=== PATIENT | female | born 1955 | race Caucasian/White ===

== ENCOUNTER 2019-09-11 22:04 | Outpatient (REF) | payer MEDICARE, SELFPAY ==
[2019-09-11 22:51] LABS: FREE T4 0.95 ng/dL (0.76-1.46); TSH 1.44 uIU/mL (0.36-3.74)
== END 2019-09-11 22:24 ==
LOC: NCHCN 22:04
PROVIDERS: PCP Internal Medicine; Visit Provider Internal Medicine
DX: E03.9 Hypothyroidism, unspecified (principal)
CPT/HCPCS: 84439; 84443

== ENCOUNTER 2021-01-18 09:57 | Outpatient (REF) | payer MEDICARE, SELFPAY ==
[2021-01-18 12:27] LABS: TSH 1.42 uIU/mL (0.36-3.74)
== END 2021-01-18 09:58 | disposition home or self-care (01) ==
LOC: NCHCN 09:57
PROVIDERS: PCP Internal Medicine; Visit Provider Internal Medicine
DX: E03.9 Hypothyroidism, unspecified (principal)
CPT/HCPCS: 84439; 84443

== ENCOUNTER 2021-02-21 11:17 | Outpatient (CLI) | payer MEDICARE, OTHER, SELFPAY ==
--- NOTE | 2021-02-21 09:15 | DI.RAD_ITS ---
EXAM: XR KNEE LT 3V AP,LAT,RUBI CLINICAL HISTORY: BILATERAL KNEE PAIN TECHNIQUE: COMPARISON: No exams were available for comparison FINDINGS: Three views were obtained. There is severe loss of the cartilaginous joint space of the medial tibio femoral joint. There is probably significant narrowing of the cartilaginous joint space of the alaniz lofemoral joint as well. There is sub chondral sclerosis of the a Pan bones at the medial tibiofem oral joint. There are very prominent marginal osteophytes at all 3 joints of the knee probable loose joint bodies noted posteriorly. IMPRESSION: Severe DJD most prominent involving medial tibiofemoral joint. RADIATION DOSE DELIVERED: Total DLP
--- NOTE | 2021-02-21 09:15 | DI.RAD_ITS ---
EXAM: XR KNEE RT 4V AP,LAT,RUBI,PAT CLINICAL HISTORY: BILATERAL KNEE PAIN TECHNIQUE: COMPARISON: CR XR KNEE LT 3V AP,LAT,RUBI from 02/21/2021 FINDINGS: Three views were obtained. There is severe loss of the cartilaginous joint space of the medial tibio femoral joint and probable marked narrowing of the cartilaginous joint space of the patellofemoral yamileth int as well. There is medial femoral subluxation on the tibia and mild varus angulation of the knee. There are very prominent hypertrophic marginal osteophytes involving all 3 joints of the knee. IMPRESSION: Severe degenerative changes of the knee, most marked involving medial tibiofemoral joint. RADIATION DOSE DELIVERED: Total DLP
== END 2021-02-21 11:18 | disposition home or self-care (01) ==
LOC: DIORS 11:17
PROVIDERS: PCP Internal Medicine; Referring Provider Internal Medicine; Visit Provider Student in an Organized Health Care Education/Training Program
DX: M25.561 Pain in right knee; M25.562 Pain in left knee; M17.0 Bilateral primary osteoarthritis of knee
CPT/HCPCS: 73562; 99203; 73564

== ENCOUNTER 2021-03-21 13:16 | Outpatient (CLI) | payer MEDICARE, OTHER, SELFPAY ==
--- NOTE | 2021-03-21 12:45 | DI.RAD_ITS ---
Exam(s) XR STANDING ALIGNMENT EXAM: XR STANDING ALIGNMENT CLINICAL HISTORY: preop planning. TECHNIQUE: 2D digital imaging was performed. COMPARISON: CR XR KNEE RT 4V AP,LAT,RUBI,PAT from 02/21/2021 CR XR KNEE LT 3V AP,LAT,RUBI from 02/21/2021 CR XR KNEE LT 3V AP,LAT,RUBI from 02/21/2021 FINDINGS: Advanced degenerative changes in both knees with [id number] apposition the medial compartments of b oth knees and marginal osteophytes. There is advanced narrowing of the left hip joint space. Also l eft femoral head osteophytes. Right hip appears unremarkable. Ankles appear unremarkable. IMPRESSION: Advanced degenerative changes both knees. Also left hip. DATA REPOSITORY: RADIATION DOSE DELIVERED:
== END 2021-03-21 13:17 | disposition home or self-care (01) ==
LOC: DIORS 13:17
PROVIDERS: PCP Internal Medicine; Referring Provider Internal Medicine; Visit Provider Physician Assistant
DX: Z01.818 Encounter for other preprocedural examination (principal); M17.11 Unilateral primary osteoarthritis, right knee; M17.12 Unilateral primary osteoarthritis, left knee; M16.12 Unilateral primary osteoarthritis, left hip
CPT/HCPCS: 77073

== ENCOUNTER 2021-03-28 02:12 | Outpatient (CLI) | payer MEDICARE, OTHER, SELFPAY ==
[2021-03-28 09:35] LABS: HCT 41.8 % (36.0-46.0); HGB 13.9 g/dL (11.2-15.7); MCHC 33.3 % (32.0-36.0); MCV 93.1 fL (80-95); Platelet Count 209 10^3/uL (130-400); RBC 4.49 10^6/uL (3.93-5.22); RDW 12.6 % (11.7-14.6); RDW-SD 43.4 fL; WBC 6.72 10^3/uL (4.4-10.8)
[2021-03-28 10:19] LABS: Anion Gap 10.6 mmol/L (3-11); BUN 19 mg/dL (7-18); CO2 27.4 mmol/L (21.0-32.0); Calcium 8.9 mg/dL (8.5-10.1); Chloride 106 mmol/L (98-107); Glucose 85 mg/dL (74-106); Potassium 4.1 mmol/L (3.5-5.1); Sodium 144 mmol/L (136-145)
[2021-03-28 11:42] LABS: Source Nasal/Nares
[2021-03-28 14:48] LABS: COVID-19 PCR Negative (Negative)
== END 2021-03-28 02:13 | disposition home or self-care (01) ==
LOC: LBO 02:12
PROVIDERS: PCP Internal Medicine; Visit Provider Student in an Organized Health Care Education/Training Program
DX: M25.561 Pain in right knee (principal); M25.562 Pain in left knee; M17.0 Bilateral primary osteoarthritis of knee; Z20.822 Contact with and (suspected) exposure to COVID-19; Z01.818 Encounter for other preprocedural examination; Z01.812 Encounter for preprocedural laboratory examination
CPT/HCPCS: 36415; 80048; 85027; 86850; 86900; 86901; 87635

== ENCOUNTER 2021-03-29 07:39 | Inpatient (IN) | payer MEDICARE, OTHER, SELFPAY ==
[2021-03-29] VITALS (9 sets, daily range): BP systolic 123–148; BP diastolic 65–84; PULSE 47–70; RESP 14–21; TEMP 36–36.4; O2SAT 95–97; BMI 33.5
--- NOTE | 2021-03-29 07:43 | DSE_ITS ---
Documented by User: Areli Hobson 03/29/21 07:50 DS: Diagnosis Discharge Diagnosis (1) Osteoarthritis of right knee: Status: Acute (2) Osteoarthritis of left knee: Status: Acute Discharge Plan Disposition Patient Disposition: HOME Condition: Good Discharge Details Reason For Visit: BILATERAL KNEE DJD Admit Date/Time: 03/29/21 07:39 Admit Provider: Noe Vallejo Attending Provider: Noe Vallejo Primary Care Provider: José Miguel Mccrary Hospital Course Hospital Course: Patient was admitted to the medical/surgical floor following the procedure. The surgery was tolerated well without any notable medical, surgical, or anesthetic complications. Mobilization began post-operatively. They were voiding s pontaneously. Vitals were stable after fluid bolus. She did have some hypotension which resolved with time and IVF. Physical therapy worked with the patient and was cleared for discharge home. No acute medical issues. Pain was controlled on oral regimen. Home Meds and New Rx's Prescriptions: New celecoxib [Celebrex] 200 mg capsule 200 mg PO BID Qty: 30 RF: 0 aspirin 81 mg tablet,delayed release (DR/EC) 81 mg PO BID 30 Days Qty: 60 RF: 0 acetaminophen 500 mg tablet 500 mg PO Q6H PRN (Reason: pain) Qty: 60 RF: 2 pantoprazole 40 mg tablet,delayed release (DR/EC) 40 mg PO DAILY 30 Days Qty: 30 RF: 0 docusate sodium [Colace] 100 mg capsule 100 mg PO BID Qty: 30 RF: 0 gabapentin 300 mg capsule 300 mg PO QHS Qty: 14 RF: 0 oxycodone 5 mg tablet 5 mg PO Q4H PRN (Reason: severe post-operative pain) Qty: 18 RF: 0 Continued levothyroxine [Synthroid] 50 mcg tablet 75 mcg PO DAILY RF: 0 ascorbic acid (vitamin C) 1,000 MG tablet 1,000 mg PO DAILY RF: 0 calcium carbonate-vitamin D3 1 EACH tablet 1 tab PO DAILY RF: 0 ferrous sulfate 325 mg (65 mg iron) tablet 325 mg PO DAILY RF: 0 No Action omeprazole 20 mg capsule,delayed release(DR/EC) 20 mg PO Q OTHER DAY RF: 0 Discharge Instructions Additional Instructions: Total Knee Discharge Instructions Activity: The most important activity is to walk. You should try to take short walks a few times a day. It is important that when resting you work on keeping the knee straight. Avoid putting a pillow behind the knee as this will encourage flexion. Work on range of motion exercises as provided by Physical Therapy. - Start outpatient physical therapy within 2 weeks. - You should wear the DEVIKA hose on both legs for 2 weeks. You may remove these at night. You may also use any compression sock in place of the DEVIKA hose. Dressing: You may remove the Liam wrap on your leg 2 days after your surgery and put on the DEVIKA stocking given to you from the hospital. Keep the surgical dressing (underneath the LIAM wrap) in place for at least one week. After the first week it may be removed and replaced with light gauze and tape or nothing. The wound and dressing may get wet after 3 days but avoid soaking the dressing or otherwise it will need to be changed. Many people prefer covering the dressing with cling wrap (saran wrap) to minimize it from getting soaked. If it gets wet, just pat dry. If it starts to peel off then it will need to be changed. Medications: - You should take Tylenol and anti-inflammatory Celebrex as your primary pain c ontrol medications. If the Celebrex is too expensive or not covered, please call the office for another alternative (Advil/Ibuprofen or Naproxen/Aleve) - You have been prescribed a stronger pain medication Oxycodone for breakthrough pain, take as needed as prescribed. - You have also been prescribed a stomach acid reduction agent Pantoprozole to help reduce stomach acid and reflux. - You have been prescribed Gabapentin to take at night for restlessness and nerve pain. - You will be taking Aspirin 81mg twice a day for DVT prevention unless instructed otherwise. - If you have constipation you should take Colace (which has been prescribed) or Miralax (which you may purchase [id number]). It takes most people 3-4 days to have a bowel movement. Follow-up: 2 weeks If you have any acute concerns or questions, please do not hesitate to contact the office at [phone]. You may contact Dr. Vallejo with any questions after hours through the hospital at [phone] or on his cell phone at [phone]. Referrals: Noe Vallejo MD [ [facility] STAFF PHYSICIAN] - Activity:: Activity as Tolerated Equipment/Supplies:: Walker Diet:: As Tolerated Discharge Orders Discharge Orders: Discharge Order (Routine); Ordered 03/30/21 Ordered By: Noe Vallejo FORMERLY [facility], [facility]–1983 Medical History Erosive esophagitis GERD (gastroesophageal reflux disease) Hypothyroid Migraine headache Obesity Surgical History Colonoscopy - [facility] 2009 Endoscopy 2009 Thyroid partial thyroidectomy Social History Smoking/Tobacco Use Status: Never Smoking risk assessment performed?: Yes Alcohol Intake: never Drug use: Never Substance use type: does not use current occupation: retired - used to work at a bank; 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 The surgery was tolerated well without any notable medical, surgical, or anesthetic complications. Mobilization began post-operatively. They were voiding spontaneously. Vitals were stable after fluid bolus. She did have some h ypotension which resolved with time and IVF. Physical therapy worked with the patient and was cleared for discharge home. No acute medical issues. Pain was controlled on oral regimen. Home Meds and New Rx's Prescriptions: New celecoxib [Celebrex] 200 mg capsule 200 mg PO BID Qty: 30 RF: 0 aspirin 81 mg tablet,delayed release (DR/EC) 81 mg PO BID 30 Days Qty: 60 RF: 0 acetaminophen 500 mg tablet 500 mg PO Q6H PRN (Reason: pain) Qty: 60 RF: 2 pantoprazole 40 mg tablet,delayed release (DR/EC) 40 mg PO DAILY 30 Days Qty: 30 RF: 0 docusate sodium [Colace] 100 mg capsule 100 mg PO BID Qty: 30 RF: 0 gabapentin 300 mg capsule 300 mg PO QHS Qty: 14 RF: 0 oxycodone 5 mg tablet 5 mg PO Q4H PRN (Reason: severe post-operative pain) Qty: 18 RF: 0 Continued levothyroxine [Synthroid] 50 mcg tablet 75 mcg PO DAILY RF: 0 ascorbic acid (vitamin C) 1,000 MG tablet 1,000 mg PO DAILY RF: 0 calcium carbonate-vitamin D3 1 EACH tablet 1 tab PO DAILY RF: 0 ferrous sulfate 325 mg (65 mg iron) tablet 325 mg PO DAILY RF: 0 No Action omeprazole 20 mg capsule,delayed release(DR/EC) 20 mg PO Q OTHER DAY RF: 0 Discharge Instructions Additional Instructions: Total Knee Discharge Instructions Activity: The most important activity is to walk. You should try to take short walks a few times a day. It is important that when resting you work on keeping the knee straight. Avoid putting a pillow behind the knee as this will encourage flexion. Work on range of motion exercises as provided by Physical Therapy. - Start outpatient physical therapy within 2 weeks. - You should wear the DEVIKA hose on both legs for 2 weeks. You may remove these at night. You may also use any compression sock in place of the DEVIKA hose. Dressing: You may remove the Liam wrap on your leg 2 days after your surgery and put on the DEVIKA stocking given to you from the hospital. Keep the surgical dressing (underneath the LIAM wrap) in place for at least one week. After the first week it may be removed and replaced with light gauze and tape or nothing. The wound and dressing may get wet after 3 days but avoid soaking the dressing or otherwise it will need to be changed. Many people prefer covering the dressing with cling wrap (saran wrap) to minimize it from getting soaked. If it gets wet, just pat dry. If it starts to peel off then it will need to be changed. Medications: - You should take Tylenol and anti-inflammatory Celebrex as your primary pain control medications. If the Celebrex is too expensive or not covered, please call the office for another alternative (Advil/Ibuprofen or Naproxen/Aleve) - You have been prescribed a stronger pain medication Oxycodone for breakthrough pain, take as needed as prescribed. - You have also been prescribed a stomach acid reduction agent Pantoprozole to help reduce stomach acid and reflux. - You have been prescribed Gabapentin to take at night for restlessness and nerve pain. - You will be taking Aspirin 81mg twice a day for DVT prevention unless instructed otherwise. - If you have constipation you should take Colace (which has been prescribed) or Miralax (which you may purchase [id number]). It takes most people 3-4 days to have a bowel movement. Follow-up: 2 weeks If you have any acute concerns or questions, please do not hesitate to contact the office at [phone]. You may contact Dr. Vallejo with any questions after hours through the hospital at [phone] or on his cell phone at [phone]. Referrals: Noe Vallejo MD [ [facility] STAFF PHYSICIAN] - Activity:: Activity as Tolerated Equipment/Supplies:: Walker Diet:: As Tolerated Discharge Orders Discharge Orders: Discharge Order (Routine); Ordered 03/30/21 Ordered By: Noe Vallejo DS: Summary Time Spent with Patient providing and/or coordinating discharge services: Greater than 30 minutes Status at Discharge Functional status at discharge: independent ambulation Overall status at discharge: patient is progressing back to baseline Mental Status: mental status grossly normal Speech and Movement: speech and movement normal Mood: congruent mood Affect: normal affect Exam Psych Mental Status: mental status grossly normal Speech and Movement: speech and movement normal Mood: congruent mood Affect: normal affect FORMERLY [facility], [facility] Medical History Erosive esophagitis GERD (gastroesophageal reflux disease) Hypothyroid Migraine headache Obesity Surgical History Colonoscopy - 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
[2021-03-29] MEDS: Gabapentin 300 MG CAP PO ×2 (11:07→21:18)
[2021-03-29] MEDS: Celecoxib 200 MG CAP 400 MG PO (11:07)
[2021-03-29] MEDS: Acetaminophen 500 MG TAB 1000 MG PO ×2 (11:07→21:18)
--- NOTE | 2021-03-29 11:09 | ANES.PREOP_ITS ---
General Info Date of Service Date Performed: 03/29/21 Height: 5 ft 7 in Weight: 97.1 kg Body Mass Index (BMI): 33.5 Surgical Procedure: Operation Date: 03/29/21 13:20 Proposed Procedures Side Surgeon p Knee Total Arthroplasty Bilateral Bilateral Noe Vallejo MD Meds Allergies and Home Medications Allergies Allergy/AdvReac Type Severity Reaction Status Date / Time No Known Allergies Allergy Unverified 03/29/21 10:58 Home Medication Medication Instructions Recorded ascorbic acid (vitamin C) 1,000 mg PO DAILY 08/06/14 calcium carbonate-vitamin D3 1 tab PO DAILY 08/06/14 Synthroid 50 mcg tablet 75 mcg PO DAILY tab-cap NS 02/21/21 ferrous sulfate 325 mg (65 mg 325 mg PO DAILY tab 03/21/21 iron) tablet acetaminophen 500 mg PO Q6H PRN #60 tab 03/29/21 aspirin 81 mg PO BID 30 Days #60 tab 03/29/21 celecoxib [Celebrex] 200 mg PO BID #30 cap 03/29/21 docusate sodium [Colace] 100 mg PO BID #30 cap 03/29/21 gabapentin 300 mg PO QHS #14 cap 03/29/21 ibuprofen 600 mg PO TID PRN #60 tab 03/29/21 omeprazole 20 mg PO Q OTHER DAY 03/29/21 oxycodone 5 mg PO Q4H PRN #18 tab 03/29/21 pantoprazole 40 mg PO DAILY 30 Days #30 tab 03/29/21 Current Visit Medications: Current Medications Generic Name Dose Route Start Last Admin Trade Name Freq PRN Reason Stop Dose Admin Acetaminophen 1,000 mg 03/29/21 06:00 03/29/21 11:07 Acetaminophen 500 Mg Tab PO 03/29/21 23:59 1,000 mg PREOP BETTY Administration Acetaminophen 1,000 mg 03/29/21 14:00 Acetaminophen 500 Mg Tab PO TID BETTY Aspirin 81 mg 03/29/21 20:00 Aspirin E.C. 81 Mg Tabec PO BID BETTY Celecoxib 400 mg 03/29/21 06:00 03/29/21 11:07 Celecoxib 200 Mg Cap PO 03/29/21 23:59 400 mg PREOP BETTY Administration Celecoxib 200 mg 03/29/21 20:00 Celecoxib 200 Mg Cap PO BID BETTY Docusate Sodium 100 mg 03/29/21 07:39 Docusate Sodium 100 Mg Cap PO BID PRN PRN Constipation Ephedrine Sulfate 0 mg 03/29/21 10:06 Ephedrine 50 Mg/Ml Vial IVP DIRECTED PRN Fentanyl 0 mcg 03/29/21 10:06 Fentanyl 100 Mcg/2 Ml Vial IVP DIRECTED PRN Gabapentin 300 mg 03/29/21 06:00 03/29/21 11:07 Gabapentin 300 Mg Cap PO 03/29/21 23:59 300 mg PREOP BETTY Administration Gabapentin 300 mg 03/29/21 22:00 Gabapentin 300 Mg Cap PO HS BETTY Hydromorphone HCl 0.5 mg 03/29/21 07:39 Hydromorphone 2 Mg/Ml Vial IVP Q2H PRN PRN Hydromorphone HCl 0 mg 03/29/21 10:06 Hydromorphone 2 Mg/Ml Vial IVP DIRECTED PRN Tranexamic Acid 1,000 mg/ 60 mls @ 360 mls/hr 03/29/21 06:00 Sodium Chloride IVPB 03/29/21 23:59 PREOP BETTY Tranexamic Acid 1,000 mg/ 60 mls @ 360 mls/hr 03/29/21 06:00 Sodium Chloride IVPB 03/29/21 23:59 DIRECTED BETTY Ringer's Solution 1,000 mls @ 80 mls/hr 03/29/21 06:00 IV 04/27/21 23:59 INFUSION BETTY Cefazolin Sodium/Dextrose 2 gm in 50 mls @ 100 mls/hr 03/29/21 06:00 Ancef Duplex IVPB 03/29/21 23:59 PREOP BETTY Cefazolin Sodium/Dextrose 1 gm in 50 mls @ 100 mls/hr 03/29/21 10:00 Ancef Duplex IVPB 03/30/21 02:29 Q8H BETTY Promethazine HCl 6.25 mg/ 50.25 mls @ 200 mls/hr 03/29/21 10:06 Sodium Chloride IVPB DIRECTED PRN Nausea IV Miscellaneous Supplies 1 each 03/29/21 06:00 Iv Access IV 04/27/21 23:59 DIRECTED BETTY Naloxone HCl 0 mg 03/29/21 10:06 Naloxone 0.4 Mg/Ml Vial IVP PRN PRN Oxycodone HCl 0 mg 03/29/21 07:39 Oxycodone 5 Mg Tab PO Q3H PRN PRN Pain Pantoprazole Sodium 40 mg 03/30/21 08:00 Pantoprazole 40 Mg Tabcr PO DAILY@0730 BETTY Polyethylene Glycol 17 gm 03/29/21 07:39 Polyethylene Glycol 3350 17 Gm Packet PO BID PRN PRN Constipation Sodium Chloride 0 ml 03/29/21 06:00 Normal Saline Flush 10 Ml Syr IV 04/27/21 23:59 PRN PRN Sodium Chloride 0 ml 03/29/21 06:00 Normal Saline 10 Ml Vial IJ 04/27/21 23:59 DIRECTED PRN Sterile Water 0 ml 03/29/21 06:00 Water,Injection,Sterile 10 Ml Vial IJ 04/27/21 23:59 DIRECTED PRN PFSH Active Problems Active Problems: Problem Status Onset Code Osteoarthritis of right knee M17.11 Osteoarthritis of left knee M17.12 Medical History Medical History Erosive esophagitis GERD (gastroesophageal reflux disease) Hypothyroid Migraine headache Obesity Surgical History Surgical History Colonoscopy - [facility] 2009 Endoscopy 2009 Thyroid partial thyroidectomy Tobacco Smoking/Tobacco Use Status: Never Alcohol Alcohol Intake: never Substance Use Substance use: Never Substance use type: does not use Vital Signs and Lab Results Vital Signs Most Recent Vital Signs in EMR: Most Recent Vital Signs Temp Pulse Resp BP Pulse Ox 36 C L 70 20 148/75 H 97 03/29/21 10:53 03/29/21 10:53 03/29/21 10:53 03/29/21 10:53 03/29/21 10:53 Lab Results Blood Type / Crossmatch: Patient ABO/Rh O Positive 03/28/21 09:05 03/28/21 Antibody Screen Negative 03/28/21 09:05 03/28/21 Complete Blood Count: White Blood Count 6.72 10^3/uL (4.4-10.8) 03/28/21 09:05 03/28/21 Red Blood Count 4.49 10^6/uL (3.93-5.22) 03/28/21 09:05 03/28/21 Hemoglobin 13.9 g/dL (11.2-15.7) 03/28/21 09:05 03/28/21 Hematocrit 41.8 % (36.0-46.0) 03/28/21 09:05 03/28/21 Platelet Count 209 10^3/uL (130-400) 03/28/21 09:05 03/28/21 Complete Metabolic Panel: Sodium Level 144 mmol/L (136-145) 03/28/21 09:05 03/28/21 Potassium Level 4.1 mmol/L (3.5-5.1) 03/28/21 09:05 03/28/21 Chloride Level 106 mmol/L (98-107) 03/28/21 09:05 03/28/21 Carbon Dioxide Level 27.4 mmol/L (21.0-32.0) 03/28/21 09:05 03/28/21 Blood Urea Nitrogen 19 mg/dL (7-18) H 03/28/21 09:05 03/28/21 Creatinine 1.0 mg/dL (0.55-1.02) 03/28/21 09:05 03/28/21 Calcium Level 8.9 mg/dL (8.5-10.1) 03/28/21 09:05 03/28/21 Glucose Level 85 mg/dL (74-106) 03/28/21 09:05 03/28/21 Liver Function Panel: No Data to Display Coagulation Panel: No Data to Display Cardiac Panel: No Data to Display Arterial Blood Gas: No Data to Display Venous Blood Gas: No Data to Display Pancreas Panel: No Data to Display Thyroid Panel: 2 No Data to Display Infectious Disease: Coronavirus (COVID-19)(PCR) Negative (Negative) 03/28/21 09:16 03/28/21 Coronavirus 2019 Source Nasal/nares 03/28/21 09:16 03/28/21 Blood Cultures: No Data to Display Toxicology Panel: No Data to Display Anesthesia Assessment and Plan Anesthesia History Personal History: No History of Anesthesia Complications Family History: No Family History of Anesthesia Complications Exercise Tolerance Exercise Tolerance: Metabolic Equivalents>4 Pertinent Negatives Pertinent Negatives: No Symptoms of GERD (GERD well controlled), No Major Cardiovascular Symptoms or Complaints, No Major Pulmonary Symptoms or Complaints and No History of CVA/TIA Cardiac & Pulmonary Exam Cardiac Exam: Normal S1/S2 Heart Sounds Pulmonary Exam: Clear Bilateral Breath Sounds Airway Exam Known Difficult Airway: No Mallampati Class: 3 Mouth Opening: Narrow (< 3cm) Thyromental Distance: Less than 3 cm Neck Range of Motion: Full ROM Neck Circumference: Normal Teeth Condition: Loose or Chipped ASA Classification ASA Score: ASA 2 Emergency Case?: No NPO Status NPO Status: NPO Clears >2 hours, Solids >8 hours Anesthesia Plan Resuscitation Status: Full Code Anesthesia Technique: Spinal Anesthesia Airway Planned: Natural Airway Monitors Used: Standard Monitors
[2021-03-29] MEDS: Lactated Ringers 1,000 ML 80 ML IV ×2 (11:15→17:42)
[2021-03-29] MEDS: ceFAZolin 2 GM/50 ML BAG IVPB (12:18)
--- NOTE | 2021-03-29 12:34 | W.ANESNERVE ---
Nerve Block Single Injection Procedure Date and Time Date Performed: 03/29/21 Procedure Start: 11:42 Location Where Procedure Performed Procedure Location: PACU Reason Performed: Postoperative Analgesia Requesting Provider: Noe Vallejo Timeout Performed Timeout Performed: Yes Monitoring Used ECG, Blood Pressure, SpO2 and See EMR for corresponding vital signs Sterility Sterility: Hand Hygiene, Surgical Cap, Surgical Mask, Sterile Gloves and Chlorhexidine Sedation Given During Procedure Sedation Given (Indicate Dose Given): Versed IV Dose:: 2 mg Patient Mental Status Patient Mental Status: Sedate with meaningful communication Nerve Block 1st Nerve Block: Laterality: Bilateral Block Type: Adductor Canal Needle / Catheter Used: 120mm SonoPlex II Local Anesthetic Bolus (Indicate Dose Given): None Additives (Indicate Dose Given): None Ultrasound: Sterile probe cover and gel used Ultrasound Image Saved?: Yes Nerve Stimulator: Not Used Paresthesia: None Procedure Tolerated: No Complications and Patient tolerated well Procedure Outcome: Successful Performed By: Carmen Gerard Supervised By: Ivana Sandhu
[2021-03-29] MEDS: Normal Saline 20 ML VIAL (13:14)
[2021-03-29] MEDS: Ketorolac 30 MG/ML VIAL (13:14)
[2021-03-29] MEDS: Bupivacaine 0.25% Pres-Free 30 ML VIAL (13:14)
--- NOTE | 2021-03-29 14:21 | IN_ITS ---
PT Notes Visit Reasons: BILATERAL KNEE DJD
--- NOTE | 2021-03-29 14:21 | PT.INIE ---
PT Notes Visit Reasons: BILATERAL KNEE DJD
--- NOTE | 2021-03-29 15:41 | ROE_ITS ---
Date of service: 03/29/21 Time of Service: 15:43 Operative Note Operative Note DATE OF PROCEDURE: 03/29/21 PRE-OP DIAGNOSIS: Bilateral Knee Osteoarthritis POST-OP DIAGNOSIS: same PROCEDURE: Bilateral Total Knee Replacement SURGEON: Noe Vallejo RN CLINICAL DOCUMENTATION SPECIALIST: Areli Hobson ANESTHESIA TYPE: Spinal Refer to Anesthesia Record ESTIMATED BLOOD LOSS: 400 PATHOLOGY: none sent TOURNIQUET TIME: 0 COMPLICATIONS: None Patient was transported to: PACU Patient's condition: stable Implants: RIGHT: 1. Depuy Attune Cementless Cruciate Retaining Femoral Component, Size 7 2. Depuy Attune Cementless Rotating Platform Tibial Component, Size 6 3. Depuy Attune 7x10 CR/RP Poly 4. Depuy Attune Patellar Component, Size 35 LEFT: 1. Depuy Attune Cemented Cruciate Retaining Femoral Component, Size 6 2. Depuy Attune Cementless Rotating Platform Tibial Component, Size 5 3. Depuy Attune 6x7 CR/RP Poly 4. Depuy Attune Patellar Component, Size 35 Indications: I have seen Vidya in clinic for symptoms of knee arthritis, confirmed with radiographic findings. She has exhausted nonoperative methods and was having significant limitations in daily function and desired better function and less pain. I discussed the technical details of a knee replacement. I explained the risks of the procedure to include, but not limited to, bleeding, infection, pain, stiffness, fracture, damage to nerves and vessels, damage to muscles and tendons, loosening, need for repeat procedure, blood clot and cardiopulmonary demise. Despite these risks, Vidya elected to proceed. Findings: There was significant signs of arthritis throughout the knee involving all three compartments of both knees. There was notable deformity of the medial femur and tibia and large osteophytes were present throughout, especially posteriorly. Procedure Description: Vidya was greeted in the preoperative holding area where the correct side was identified and marked. The consent was reviewed with the patient and signed. The history and physical was updated. All questions were answered. Preoperative medications were administered: Acetaminophen 1000mg, Celebrex 400mg, and Gabapentin 300mg. An adductor canal block was then administered by the anesthesia team in the PACU to both knees. Vidya was taken back to the operating room. A spinal anesthestic was then administered. The patient was placed into the supine position on the operating room table. A nonsterile tourniquet was placed high onto both legs but not used. Posts were placed for positioning during the procedure. All bony prominences were well padded. Prophylactic antibiotics in the form of Cefazolin were administered. 1g of Tranxemic Acid was given intravenously within 30 minutes of incision. The right and left legs were then prepped with Chloraprep and draped in a standard fashion with impervious stockinette and a bilateral extremity drape. A second prep with Chloraprep was performed prior to application of Iodine impregnated skin protection on the right knee, while the left knee was left covered by the stockinette. A timeout to confirm correct identity, side and site, procedure, allergies, anesthesia, and medical concerns was performed. RIGHT KNEE: With the knee in some flexion, a midline incision was made overlying the knee. Full thickness skin flaps were raised once the extensor mechanism was encountered. These were raised medially and laterally. Any bleeding was controlled with electrocautery. Once the extensor mechanism was fully exposed, a medial parapatellar arthrotomy was performed in a flexed position. All bleeding from the arthrotomy and the geniculate arteries was coagulated. A medial subperiosteal peel was performed with electrocautery to the midcoronal plane. Due to the significant varus deformity the entire medial tibial plateau was exposed. There was a large medial osteophyte which was exposed by elevating the medial tissues subperiosteally. The fat pad was removed while keeping the patellar tendon protected. The anterior distal femur synovium was removed for later visualization. The ACL and PCL were resected and the anterior horn of the lateral meniscus was transected. The knee was then flexed with the patella everted. Large osteophytes from the tibia were removed. Large osteophytes from the femur were removed. There was a loose posteromedial osteophyte from the tibia. Using a step drill, and based on preoperative templating, the femoral canal was entered. This was done with a step drill without any difficulty. The intramedullary distal femoral cut guide was inserted, set to a 5 degree valgus cut and 9mm cut thickness. The distal femoral cut guide was then held in posi tion and pinned. With the soft tissues protected, the distal cut was performed. This was passed over a few times to ensure a planar cut. I then turned attention to the tibia. The extramedullary guide was placed onto the leg. The distal aspect was slid medial to adjust for position of center of ankle and stay in line with shaft of the tibia. Approximately 5 degrees of posterior slope was kept in the proximal cutting guide. The center of the guide was aligned with the PCL. The stylus was used to assess cut thickness. The medial side, most involved side, was set for a 3mm cut. This was then held in position and pinned into place with 2 additional pins and a cross pin for stability. The medial and lateral collateral ligaments were protected and the cut was performed. With this com pleted, it was assessed and noted to be of appropriate dimensions. The guide was removed. A spacer block was inserted and the knee was brought into extension. The 8mm spacer block provided full extension, without hyperextension and with stability of both the medial and lateral collateral ligaments was assessed. The pins from the femur and the tibia were then removed. The distal femur was then sized. The anterior stylus was placed onto the lateral ridge of the anterior femur. This indicated a size 7 femur. The external rotation of the guide was adjusted to 0 degrees to match the epicond ylar axis, perpendicular to [place]?s line. The 4-in-1 cutting guide was the placed. The posterior medial femur cut was evaluated and appeared of good thickness. The spacer block was inserted underneath the cutting guide and stability was confirmed in 90 degrees of flexion. An sabra wing was used to confirm appropriate position of the anterior cut to avoid notching. This cutting guide was ensured to be flush on the cut surface and then pinned into place with headed pins. While protecting the soft tissues, quad tendon, and collateral ligaments, the anterior and posterior cuts were performed with a saw. The central two pins were removed and the posterior and anterior chamfers were cut next. The notch-cutting guide was placed. This was pinned to lateralize the femoral component as much as possible while keeping it flush on the cut surface. This was then pinned into position. A reciprocating saw was used to make the notch cut. A rasp smoothed the cut surfaces. The medial and lateral menisci were removed. I then used a rongeur as well as a curved osteotome to try to remove the many posterior osteophytes. There were many large bony prominences posteriorly. A trial femoral component was then inserted, impacted down to the cut surfaces, and the lug holes were drilled. A provisional trial tibial component was placed and the knee was brought through range of motion. The polyethylene was trialed until there was good flexion and extension with excellent stability to the medial and lateral collaterals. The patella was tracking without thumbs. A size 10mm polyethylene component provided the best range of motion and stability with less than 2mm gapping with medial and lateral stress and full extension without significant hyperextension. The tibial cut surface was fully exposed. The tibia was then sized as a 6. The tibia had been previously marked during trialing to correspond to the center of the tibial component to help with rotation. The trial was aligned to this marilin, approximately rotated to the medial 1/3rd of the tibial tubercle. The trial was pinned into place. The tibia was prepared with a reamer and a keel punch and lug holes. The knee was then brought into extension and the patella was measured as 25mm. Using the patellar clamp and cut guide, this was resected to a flat surface with at least 13mm of thickness remaining. The size 35 patella fit the best. This was oriented and then clamped into position. The lugs were drilled. The trial components were removed. The final components were opened on the back table. The periosteal and capsular tissues, especially posteriorly, around the knee were then systematically injected with a periarticular cocktail consisting of 50cc 0.25% Marcaine, 30mg Ketorolac, 20cc of Exparal and 50cc of injectable saline. The knee was thoroughly irrigated with a pulse lavage and dried. Irrisept was also used to irrigate the tissues. On the back table, with the implants opened, the cement was mixed. One batch of high viscosity cement was prepared with vacuum assistance. After the cement was ready a small amount was placed on the cut surface of the patella and the patellar button was clamped into position and held. While the cement was hardening, the cementless knee components were placed. Starting with the tibial component, the tibia was subluxed anteriorly and the lug holes of the component were lined up. The tibia was then impacted with an impactor and mallet until the tibial component was in contact with the tibia. The final polyethylene component was inserted. Then, the femoral component was inserted. The lug holes were aligned and the component was impacted into position. The knee was irrigated with Irrisept chlorhexadine solution. This was allowed to sit in the knee for 3 minutes. After the cement had finally cured, approximately 15min, the clamp was removed from the patella and the knee was taken through range of motion. The patella was tracking with a no-thumbs technique. The capsule was then reapproximated with a No. 1 Vicryl at multiple locations. The capsule was finally closed with a No. 2 Stratafix, barbed suture. The second dosing of 1g TXA was started. Deep tissues were then reapproximated with 0 Vicryl and 2-0 Vicryl. The skin was closed with a running 3-0 Monocryl in a subcuticular fashion. This was reinforced with skin glue. This knee was covered and I proceeded with the left knee. A second dose of TXA was now administered. LEFT KNEE: With the knee in some flexion, a midline incision was made overlying the knee. Full thickness skin flaps were raised once the extensor mechanism was encountered. These were raised medially and laterally. Any bleeding was controlled with electrocautery. Once the extensor mechanism was fully exposed, a medial parapatellar arthrotomy was performed in a flexed position. All bleeding from the arthrotomy and the geniculate arteries was coagulated. A medial subperiosteal peel was performed with electrocautery to the midcoronal plane. Due to the significant varus deformity the entire medial tibial plateau was exposed. The fat pad was removed while keeping the patellar tendon protected. The anterior distal femur synovium was removed for later visualization. The ACL and PCL were resected and the anterior horn of the lateral meniscus was transected. The knee was then flexed with the patella everted. Large osteophytes from the tibia were removed. Large osteophytes from the femur were removed. Once again there was a large osteophyte from the medial tibia which had capsular tissues embedded to it. Using a step drill, and based on preoperative templating, the femoral canal was entered. This was done with a step drill without any difficulty. The intramedullary distal femoral cut guide was inserted, set to a 5 degree valgus cut and 9mm cut thickness. There was notable deformity of the distal femur, both laterally and medially. The distal femoral cut guide was then held in position and pinned. With the soft tissues protected, the distal cut was performed. This was passed over a few times to ensure a planar cut. I then turned attention to the tibia. The extramedullary guide was placed onto the leg. The distal aspect was slid medial to adjust for position of center of ankle and stay in line with shaft of the tibia. Approximately 5 degrees of posterior slope was kept in the proximal cutting guide. The center of the guide was aligned with the PCL. The stylus was used to assess cut thickness. The medial side, most involved side, was set for a 2mm cut. This was then held in position and pinned into place with 2 additional pins and a cross pin for stability. The medial and lateral collateral ligaments were protected and the cut was performed. With this completed, it was assessed and noted to be of appropriate dimensions. The guide was removed. A spacer block was inserted and the knee was brought into extension. The 6mm spacer block provided full extension, without hyperextension and with stability of both the medial and lateral collateral ligaments was assessed. The pins from the femur and the tibia were then removed. The distal femur was then sized. The anterior stylus was placed onto the lateral ridge of the anterior femur. This indicated a size 6 femur. The external rotation of the guide was adjusted to 0 degrees to match the epicondylar axis, perpendicular to [place]?s line. The 4-in-1 cutting guide was the placed. The posterior medial femur cut was evaluated and appeared of good thickness. The spacer block was inserted underneath the cutting guide and stability was confirmed in 90 degrees of flexion. An sabra wing was used to confirm appropriate position of the anterior cut to avoid notching. This cutting guide was ensured to be flush on the cut surface and then pinned into place with headed pins. While protecting the soft tissues, quad tendon, and collateral ligaments, the anterior and posterior cuts were performed with a saw. The central two pins were removed and the posterior and anterior chamfers were cut next. The notch-cutting guide was placed. This was pinned to lateralize the femoral component as much as possible while keeping it flush on the cut surface. This was then pinned into position. A reciprocating saw was used to make the notch c ut. A rasp smoothed the cut surfaces. The medial and lateral menisci were removed. Once again, there were many posterior osteophytes. Using a rongeur and a curved osteotome, I removed these. They were very large and difficulty to remove and took some time to get them out. Unfortunately, it seemed during this process that some of the bone of the posterior femur was compressed. It was checked and still seemed intact enough to support the implant. Thus, a trial femoral component was then inserted, impacted down to the cut surfaces, and the lug holes were drilled. A provisional trial tibial component was placed and the knee was brought through range of motion. The polyethylene was trialed until there was good flexion and extension with excellent stability to the medial and lateral collaterals. The patella was tracking without thumbs. A size 7mm polyethylene component provided the best range of motion and stability with less than 2mm gapping with medial and lateral stress and full extension without significant hyperextension. The tibial cut surface was fully exposed. The tibia was then sized as a 5. The tibia had been previously marked during trialing to correspond to the center of the tibial component to help with rotation. The trial was aligned to this marilin, approximately rotated to the medial 1/3rd of the tibial tubercle. The trial was pinned into place. The tibia was prepared with a reamer and a keel punch and lug holes. The knee was then brought into extension and the patella was measured as 25mm. Using the patellar clamp and cut guide, this was resected to a flat surface with at least 13mm of thickness remaining. The size 35 patella fit the best. This was oriented and then clamped into position. The lugs were drilled. The trial components were removed. The final components were opened on the back table. The periosteal and capsular tissues, especially posteriorly, around the knee were then systematically injected with a periarticular cocktail consisting of 50cc 0.25% Marcaine, 30mg Ketorolac, 20cc of Exparal and 50cc of injectable saline. The knee was thoroughly irrigated with a pulse lavage and dried. Irrisept was also used to irrigate the tissues. On the back table, with the implants opened, the cement was mixed. One batch of high viscosity cement was prepared with vacuum assistance. After the cement was ready a small amount was placed on the cut surface of the patella and the patellar button was clamped into position and held. While the cement was hardening, the cementless knee components were placed. Starting with the tibial component, the tibia was subluxed anteriorly and the lug holes of the component were lined up. The tibia was then impacted with an impactor and mallet until the tibial component was in contact with the tibia. The final polyethylene component was inserted. Then, the femoral component was inserted. The lug holes were aligned and the component was impacted into position. Unfortunately, the component would not impace all the way with a lack of purchase posteriorly causing the implant to rotate. The poly was removed but the component was not stable. Therefore, I convereted to a cemented femoral component, keeping with the size 6 to keep the flexion gap. On the back table, one batch of high viscosity cement was mixed. The cut surface of the femur was pulse irrigated and dried. Cement was applied to the posterior condyles of the implant and I manually pressurized cement into the femur. The femoral component was then placed and held during the entire cementing process trying to keep the anterior flanges resting against the anterior femur. After the cement had finally cured, approximately 15min, the clamp was removed from the patella and the femur and the knee was taken through range of motion. The patella was tracking with a no-thumbs technique. Excess cement was removed. The trial poly was removed and the real component inserted. The capsule was then reapproximated with a No. 1 Vicryl at multiple locations. The capsule was finally closed with a No. 2 Stratafix, barbed suture. Deep tissues were then reapproximated with 0 Vicryl and 2-0 Vicryl. The skin was closed with a running 3-0 Monocryl in a subcuticular fashion. This was reinforced with skin glue. A Mepilex silver dressing was applied along with a [id number] BERLIN wrap to both knees. A CryoCuff was applied. Vidya was transferred to the hospital bed without difficulty an suffering no apparent complication. She has a good prognosis. Physical therapy will start today and without r estrictions, weight-bearing as tolerated. Aspirin 81mg BID will be used for DVT prophylaxis.
--- NOTE | 2021-03-29 17:17 | NT_ITS ---
Date of service: 03/29/21 Time of Service: 17:17 PT Notes Visit Reasons: BILATERAL KNEE DJD Patient is still in the PACU unit as of 17:17 PM. Consulted with orthopedic surgeon who advised that patient is okay to be seen tomorrow morning. Thank you for the opportunity to participate in the care of this patient. Annie Regalado PT, DPT, [facility] [place], [place]
[2021-03-29] MEDS: ceFAZolin 1 GM/50 ML BAG IVPB (17:43)
[2021-03-29] MEDS: Celecoxib 200 MG CAP PO (21:18)
[2021-03-29] MEDS: Aspirin E.C. 81 MG TABEC PO (21:18)
[2021-03-30] VITALS (14 sets, daily range): BP systolic 73–127; BP diastolic 40–74; PULSE 54–110; RESP 16–19; TEMP 36.1–36.6; O2SAT 87–98
[2021-03-30] MEDS: ceFAZolin 1 GM/50 ML BAG IVPB ×2 (01:28→11:18)
[2021-03-30] MEDS: Lactated Ringers 1,000 ML 80 ML IV (05:26)
--- NOTE | 2021-03-30 07:17 | W.ANESPOSTOP ---
Postoperative Evaluation Date, Time and Location Date Performed: 03/30/21 Time Performed: 07:17 Patient Location: Med/Surg Vital Signs Most Recent Imported Vital Signs: Most Recent Vital Signs Temp Pulse Resp BP Pulse Ox 36.6 C 60 18 100/61 97 03/30/21 03:58 03/30/21 03:58 03/30/21 03:58 03/30/21 03:58 03/30/21 03:58 Pain Score Most Recent Pain Score: Most Recent Pain Score Pain Level 0 03/30/21 03:58 Assessment Mental Status: Awake (Alert & Oriented to Patient Baseline) Airway and Respiratory Function: Patent airway with normal (patient baseline) respiratory exam Cardiovascular Function: Hemodynamically Stable Hydration Status: Adequately Hydrated Nausea & Vomiting: No Nausea or Vomiting Pain: Pt. Denies Any Pain Peripheral Nerve Block: Regional nerve block not resolved at time of post operative discharge
[2021-03-30] MEDS: Acetaminophen 500 MG TAB 1000 MG PO ×2 (08:43→13:34)
[2021-03-30] MEDS: Celecoxib 200 MG CAP PO (08:44)
[2021-03-30] MEDS: Aspirin E.C. 81 MG TABEC PO (08:44)
[2021-03-30] MEDS: Pantoprazole 40 MG TABCR PO (08:44)
--- NOTE | 2021-03-30 09:35 | PT.INIE ---
Date of service: 03/30/21 Time of Service: 09:35 PT Notes Visit Reasons: BILATERAL KNEE DJD Physical Therapy Inpatient Initial Evaluation Date: 03/30/2021 Referring Doctor: RADHA Marquez PT Orders: PT CONSULT: Status post Ortho surgery Precautions: Fall. Standard. WBAT on BLE. Patient Profile/Admitting Diagnosis: Vidya is a 65-year-old female with osteoarthritis of the right and left knee and is status post bilateral total knee arthroplasty on postoperative day 1. PMHX: Medical History? Erosive esophagitis GERD (gastroesophageal reflux disease) Hypothyroid Migraine headache Obesity Surgical History? Colonoscopy - MAC 2010 Endoscopy 2010Thyroid partial thyroidectomy Social History/Home Situation: Lives with in a private home with one-step onto a deck and another step that leads onto the entrance door with a rail on 1 side. Daughter took 2 weeks off from work to help take care of mom as needed. 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 I without AD prior to surgery. Equipment Owned/DME: Front-wheeled walker Subjective: Complained of being woozy after standing up and walking a short distance inside room with blood pressure in the 90s/70s mmHg. Reported increased lightheadedness after walking about 100 feet to his blood pressure in the 70s/40s mmHg. Nurse Bledsoe and Nurse gore aware. Nurse Ladi and CELINA Sheppard attempted manual measurement of BP and is found consistent with the digital reading. Objective: General Observation: Supine in bed. Liam wraps to bilateral LE. CryoCuff to both knees. Plaza catheter discharged earlier this morning. Mental Status: Alert and oriented as to person, place, time, and purpose. Able to pay attention, focus, and respond appropriately. Pain: 1?2/10 in B knees Vital Signs: As above ROM: Right Upper Extremity: Shoulder Flexion WFL. Shoulder abduction WFL. Shoulder ER/IR WFL. Elbow flexion WFL. Forearm pronation/supination WFL. Wrist flexion WFL. Opening and closing of hand WFL. Left Upper Extremity: Shoulder Flexion WFL. Shoulder abduction WFL. Shoulder ER/IR WFL. Elbow flexion WFL. Forearm pronation/supination WFL. Wrist flexion WFL. Opening and closing of hand WFL. Right Lower Extremity: Hip flexion WFL. Hip abduction WFL. Hip ER/IR WFL. Knee flexion 10 to 90 degrees. Knee extension -10 degrees. Ankle dorsiflexion/eversion WFL. Ankle plantarflexion/inversion WFL. Left Lower Extremity: Right Lower Extremity: Hip flexion WFL. Hip abduction WFL. Hip ER/IR WFL. Knee flexion 10 to 90 degrees. Knee extension -10 degrees. Ankle dorsiflexion/eversion WFL. Ankle plantarflexion/inversion WFL. Strength: Right Upper Extremity: Shoulder flexors 5/5. Shoulder abductors 5/5. Shoulder ER 5/5. Shoulder IR 5/5. Forearm pronators 5/5. Forearm supinators 5/5. Elbow flexors 5/5. Elbow extensors 5/5. Elementary Reading Specialist strong. Left Upper Extremity: Shoulder flexors 5/5. Shoulder abductors 5/5. Shoulder ER 5/5/ Shoulder IR 5/5. Forearm pronators 5/5. Forearm supinators 5/5. Elbow flexors 5/5. Elbow extensors 5/5. Elementary Reading Specialist strong. Right Lower Extremity: Hip flexors 4/5. Hip abductors 4/5. Hip external rotators 4/5. Hip internal rotators 4/5. Knee flexors 3-/5. Knee extensors 3-/5. Ankle dorsiflexors/evertors 5/5. Ankle plantarflexors/invertors 5/5. Left Lower Extremity: Hip flexors 4/5. Hip abductors 4/5. Hip external rotators 4/5. Hip internal rotators 4/5. Knee flexors 3-/5. Knee extensors 3-/5. Ankle dorsiflexors/evertors 5/5. Ankle plantarflexors/invertors 5/5. Bed Mobility/Transfers: Rolling standby assist Supine to sit standby assist with HOB at 45 degrees Sit to supine minimal assist of 3 due to hypotensive episode after ambulation activity Sit to stand contact-guard assist Stand to sit contact-guard assist Bed to chair contact-guard assist Chair to bed contact-guard assist Gait: Patient initially tolerated it about 10 feet of in room ambulation but reported being woozy and asked to sit down on a wheelchair with a blood pressure reading of 90s/70s mmHg. Patient felt a lot better and was able to tolerate additional hallway ambulation of 100 feet before complaining of being mildly lightheaded with blood pressure measurement in the 70s/40s mmHg this time. Both nurse Ladi and Laly Ascencio measured systolic BP to be close to the 70s and advised for the patient to go back to bed for immediate aid to hypotensive episode. Patient appeared to be near fainting when she was assisted back to bed and nursing staff took over to manage said episode. Balance: Static Sitting: Normal Dynamic Sitting: Normal Static Standing: Fair Dynamic Standing: Fair Special Tests: Mobility Limitations Standardized Measure [facility] AM-PAC 6 clicks Basic Mobility Inpatient Short Form: Raw Score: 18 CMS Score: 47% deficit Informed Consent/Education: Patient was instructed in purpose of PT consult and plan of care. Agreeable to proceed with established PT POC to achieve personal goals. Assessment: Vidya requires the use of front wheel walker for all mobility ADL performance to reduce fall risk and maximize independence. Hypotensive episode limited participation in mobility performance during the morning session. Will continue to work with patient once she re-stabilizes for the afternoon session. Patient presents with clinical signs and symptoms consistent with current/admitting diagnoses that have resulted to mobility limitations, gait instability, generalized weakness, and impairment of motor control as demonstrated by the following impairment level findings: 1. Decreased strength to B knee major muscle groups 2. Impaired sitting/standing balance 3. Impaired activity tolerance 4. Limitation of joint range of motion in B knees Impairments are contributing to the following functional limitations: 1. Dependent bed mobility skills 2. Increased dependence with transfers 3. Inability to safely ambulate without assistive device and physical assistance 4. Increase completion time for mobility ADL performance 5. Increased fall risk 6. Inability to negotiate steps alone safely Patient is assessed as a 79542 moderate complexity based on the following: History: 65-year-old female with past medical history as indicated above Examination: Demonstrable impairment in strength, balance, and mobility level with underlying impairments and functional limitations as exhibited above as well as deficit score of 47% utilizing the [facility] Mobility Inpatient Short Form Presentation: Evolving Decision Makin moderate complexity Goals: Goals X1 week 1. Supine-Sit independent 2. Sit-Supine independent 3. Sit-Stand independent 4. Stand-Sit independent 5. Bed-Chair independent 6. Chair-Bed independent 7. Independent gait on level surface with use of front wheeled walker for at least 300 feet without report of pain nor dyspnea 8. Independent stair negotiation while holding onto 1 rail for at least 3 steps without report of pain nor dyspnea 9. Independent with home exercise program 10. Good static and dynamic standing balance/tolerance Plan of Care/Treatment Plan: 1-2x/day, 7 days/week x 1 week. Plan of care has been reviewed with the FEED MILL MANAGER providing the service under Physical Therapy direction. Initiate Physical Therapy intervention for pain management as needed, strengthening, bed mobility, transfers, gait, stairs, balance training, and use of assistive device. DISCHARGE RECOMMENDATIONS: Patient will benefit from home health PT services in order to progress mobility level using least restrictive assistive ambulatory device, assess home safety, identify additional equipment needs, and establish a functional maintenance program that will increase ability of patient to remain at home. TREATMENT CODE/TIME: 71449 x 20 minutes, 80169 x 15 minutes beginning at 9:35 AM. Thank you for the opportunity to participate in the care of this patient. Annie Regalado PT, DPT, CLT [facility] [place], [place]
--- NOTE | 2021-03-30 10:12 | INITIAL_ITS ---
- If Service Date Differs Date of service: 03/30/21 Time of Service: 10:12 Care Management Initial Assess REASON FOR HOSPITALIZATION:: osteoarthritis of right and left knees PAST MEDICAL HISTORY/PAST SURGICAL HISTORY:: Medical History . Erosive esophagitis. GERD (gastroesophageal reflux disease). Hypothyroid. Migraine headache. Obesity. Surgical History . Colonoscopy - MAC. 2009. Endoscopy. 2010. Thyroid. partial thyroidectomy PREVIOUS FUNCTIONAL STATUS/SOCIAL/FAMILY SUPPORTS:: Vidya lives in [place], [place] with her Quoc. They have 2 children, a son and a daughter, that live nearby and who are very supportive. 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 Vidya has had increasing difficulty with ambulation, requiring the use of a cane and walker prior to her surgery, but is otherwise independent with ADLs etc.. CURRENT FUNCTIONAL STATUS:: Vidya was lying in bed when CM met with her. She was pleasant and engaged readily with CM. She shared that she had just worked with PT but could not do the stairs as she became hypotensive. Vidya verbalized wanting to go home today but undertstands that may not be possible if her blood pressure remains low. Later in the day her blood pressure stabilized and was 127/74 at 1500. ADVANCE DIRECTIVES:: In file. [employer] [facility] Has patient been provided with info about the portal/API?: Yes Did the patient sign up for the portal?: No CODE STATUS:: Full Code INSURANCE COVERAGE / FINANCIAL ISSUES:: Medicare. [employer] CURRENT HOME/COMMUNITY SERVICES/EQUIPMENT:: Vidya has 2 walkers, a shower chair, canes PRIMARY CARE PHYSICIAN:: José Miguel Mccrary POTENTIAL DISCHARGE NEEDS:: Follow up with PCP, surgeon and discharge velásquez of care PATIENT/FAMILY EDUCATION NEEDS:: Review of discharge instructions, medications, activity, limitations, Ask Me Three TRANSPORTATION:: via private vehicle with family PLAN:: Vidya will likely be discharged home with no new services. Her daughter plans to take 2 weeks off from work to assist her and she does not feel that she will need any additional services. Vidya will follow up with her orthopedic surgeon, PCP and plan of care and transport with family.
[2021-03-30] MEDS: Normal Saline 1,000 ML 1000 ML IV ×2 (10:16→12:48)
[2021-03-30] MEDS: Normal Saline 500 ML 100 ML IV (11:18)
[2021-03-30 13:08] LABS: HCT 33.3 % (36.0-46.0); HGB 11.1 g/dL (11.2-15.7)
[2021-03-30] MEDS: Normal Saline Flush 10 ML SYR IV (14:11)
--- NOTE | 2021-03-30 15:03 | PT.INTREAT ---
PT Notes Visit Reasons: BILATERAL KNEE DJD 03/30/2021 SUBJECTIVE: Is feeling good this afternoon. Would like to go home if possible. She does not think she will have any trouble on the stairs. Not symptomatic during treatment today. OBJECTIVE: VITALS: 106/58 TRANSFERS Supine to sit: SBA Sit to supine: SBA Sit to stand: SBA Stand to sit: SBA GAIT Device: FWW Weight bearing: AT Assist: SBA Distance: 100' STAIRS: Up and down 3-4 steps 2 rails, SBA, step to pattern. THEREX: Review SLR, QS, Glute set. ASSESSMENT: Tolerates PT well today without difficulty with stairs or straight plane ambulation. She has a good understanding of her HEP. No symptomatic throughout. PLAN: Per POC. Treatment time: 20' [id number] Rufina Mas PTA Clinic location: [facility] [place], [place]
--- NOTE | 2021-03-30 15:58 | CHAPLAIN ---
Vidya was resting in bed when I visited. She had both her knees replaced and told me she's been up walking around and doing stairs with PT. Vidya's mom, Giuliana Mason, 90, here last week and Vidya and her sister were strong supports for their mom.
--- NOTE | 2021-03-31 16:40 | PT.INDS ---
Date of service: 03/31/21 PT Notes Visit Reasons: BILATERAL KNEE DJD Physical Therapy Inpatient Discharge Summary Date: 03/31/2021 Dates of service: 03/30/2021 only This is a clinical summary of care provided for the duration of dates listed above. No charge was made in the completion of this documentation. Referring Doctor: RADHA Marquez PT Orders: PT CONSULT: Status post Ortho surgery Precautions: Fall. Standard. WBAT on BLE. Patient Profile/Admitting Diagnosis: Vidya is a 65-year-old female with osteoarthritis of the right and left knee and is status post bilateral total knee arthroplasty on postoperative day 1. PMHX: Medical History Erosive esophagitis GERD (gastroesophageal reflux disease) Hypothyroid Migraine headache Obesity Surgical History Colonoscopy - MAC 2010 Endoscopy 2010Thyroid partial thyroidectomy Social History/Home Situation: Lives with in a private home with one-step onto a deck and another step that leads onto the entrance door with a rail on 1 side. Daughter took 2 weeks off from work to help take care of mom as needed. 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 I without AD prior to surgery. Equipment Owned/DME: Front-wheeled walker Subjective: NT. See most recent MEDICAL EDUCATOR notes. Objective: General Observation:NT. See most recent MEDICAL EDUCATOR notes. Mental Status: NT. See most recent MEDICAL EDUCATOR notes. Pain: NT. See most recent MEDICAL EDUCATOR notes. Vital Signs: NT. See most recent MEDICAL EDUCATOR notes. ROM: Right Upper Extremity: Shoulder Flexion WFL. Shoulder abduction WFL. Shoulder ER/IR WFL. Elbow flexion WFL. Forearm pronation/supination WFL. Wrist flexion WFL. Opening and closing of hand WFL. Left Upper Extremity: Shoulder Flexion WFL. Shoulder abduction WFL. Shoulder ER/IR WFL. Elbow flexion WFL. Forearm pronation/supination WFL. Wrist flexion WFL. Opening and closing of hand WFL. Right Lower Extremity: Hip flexion WFL. Hip abduction WFL. Hip ER/IR WFL. Knee flexion 10 to 90 degrees. Knee extension -10 degrees. Ankle dorsiflexion/eversion WFL. Ankle plantarflexion/inversion WFL. Left Lower Extremity: Right Lower Extremity: Hip flexion WFL. Hip abduction WFL. Hip ER/IR WFL. Knee flexion 10 to 90 degrees. Knee extension -10 degrees. Ankle dorsiflexion/eversion WFL. Ankle plantarflexion/inversion WFL. Strength: Right Upper Extremity: Shoulder flexors 5/5. Shoulder abductors 5/5. Shoulder ER 5/5. Shoulder IR 5/5. Forearm pronators 5/5. Forearm supinators 5/5. Elbow flexors 5/5. Elbow extensors 5/5. Cocktail Lounge Manager strong. Left Upper Extremity: Shoulder flexors 5/5. Shoulder abductors 5/5. Shoulder ER 5/5/ Shoulder IR 5/5. Forearm pronators 5/5. Forearm supinators 5/5. Elbow flexors 5/5. Elbow extensors 5/5. Cocktail Lounge Manager strong. Right Lower Extremity: Hip flexors 4/5. Hip abductors 4/5. Hip external rotators 4/5. Hip internal rotators 4/5. Knee flexors 3-/5. Knee extensors 3-/5. Ankle dorsiflexors/evertors 5/5. Ankle plantarflexors/invertors 5/5. Left Lower Extremity: Hip flexors 4/5. Hip abductors 4/5. Hip external rotators 4/5. Hip internal rotators 4/5. Knee flexors 3-/5. Knee extensors 3-/5. Ankle dorsiflexors/evertors 5/5. Ankle plantarflexors/invertors 5/5. Bed Mobility/Transfers: Rolling standby assist Supine to sit standby assist with HOB at 45 degrees Sit to supine standby assist Sit to stand standby assist Stand to sit standby assist Bed to chair standby assist Chair to bed standby assist Gait: Patient is able to tolerate up to 100 feet of level surface ambulation using front wheeled walker with WBAT on BLE. Stairs: Tolerated up-and-down three 4 inch steps while holding onto bilateral rails requiring standby assist with blood pressure of 106/58 mmHg and is asymptomatic. Balance: Static Sitting: Normal Dynamic Sitting: Normal Static Standing: Fair Dynamic Standing: Fair Assessment: Vidya continues to require the use of front-wheeled walker for all mobility ADL performance to reduce fall risk and maximize independence. Hypotensive episode limited participation in mobility performance during the morning session. Patient continues to present with clinical signs and symptoms consistent with current/admitting diagnoses that have resulted to mobility limitations, gait instability, generalized weakness, and impairment of motor control as demonstrated by the following impairment level findings: 1. Decreased strength to B knee major muscle groups 2. Impaired sitting/standing balance 3. Impaired activity tolerance 4. Limitation of joint range of motion in B knees Impairments are continuing to contribute to the following functional limitations: 1. Dependent bed mobility skills 2. Increased dependence with transfers 3. Inability to safely ambulate without assistive device and physical assistance 4. Increase completion time for mobility ADL performance 5. Increased fall risk 6. Inability to negotiate steps alone safely Patient is assessed as a 73575 moderate complexity based on the following: History: 65-year-old female with past medical history as indicated above Examination: Demonstrable impairment in strength, balance, and mobility level with underlying impairments and functional limitations as exhibited above as well as deficit score of 47% utilizing the [facility] Mobility Inpatient Short Form Presentation: Evolving Decision Makin moderate complexity Goals: Goals X1 week 1. Supine-Sit independent NOT MET 2. Sit-Supine independent NOT MET 3. Sit-Stand independent NOT MET 4. Stand-Sit independent NOT MET 5. Bed-Chair independent NOT MET 6. Chair-Bed independent NOT MET 7. Independent gait on level surface with use of front wheeled walker for at least 300 feet without report of pain nor dyspnea NOT MET 8. Independent stair negotiation while holding onto 1 rail for at least 3 steps without report of pain nor dyspnea NOT MET 9. Independent with home exercise program NOT MET 10. Good static and dynamic standing balance/tolerance NOT MET DISCHARGE RECOMMENDATIONS: Patient will benefit from home health PT services in order to progress mobility level using least restrictive assistive ambulatory device, assess home safety, identify additional equipment needs, and establish a functional maintenance program that will increase ability of patient to remain at home. TREATMENT CODE/TIME: OH Thank you for the opportunity to participate in the care of this patient. Annie Regalado PT, DPT, CLT [facility] [place], [place]
== END 2021-03-30 17:04 | disposition home or self-care (01) | DRG 462 ==
LOC: MS 03-30 08:01 → PDS 03-30 08:03
PROVIDERS: Admitting Provider Student in an Organized Health Care Education/Training Program; PCP Internal Medicine; Visit Provider Student in an Organized Health Care Education/Training Program
PROC: 0SRC0JZ Replacement of Right Knee Joint with Synthetic Substitute, Open Approach (ICD-10-PCS; CPT 27447; principal; 2021-03-29 13:00)
DX: M17.0 Bilateral primary osteoarthritis of knee (principal); K22.10 Ulcer of esophagus without bleeding; K21.9 Gastro-esophageal reflux disease without esophagitis; E66.9 Obesity, unspecified; Z68.33 Body mass index [BMI] 33.0-33.9, adult; E03.9 Hypothyroidism, unspecified; G43.909 Migraine, unspecified, not intractable, without status migrainosus; I95.81 Postprocedural hypotension
CPT/HCPCS: 27447; 36415; 97162; 97530; 85014; 85018; J0171; J0690; J1100; J1885; J2001; J2250; J2405

== ENCOUNTER 2021-04-14 11:43 | Outpatient (CLI) | payer MEDICARE, OTHER, SELFPAY ==
--- NOTE | 2021-04-14 11:30 | DI.RAD_ITS ---
Exam(s) XR KNEE LT 1V XR STANDING ALIGNMENT XR KNEE RT 1V EXAM: XR KNEE RT 1V CLINICAL HISTORY: 1ST POST OP BILAT TKA. TECHNIQUE: 2D digital imaging was performed. Standing AP views were performed from the pelvis throu gh the ankles. COMPARISON: CR XR STANDING ALIGNMENT from 03/21/2021 CR XR STANDING ALIGNMENT from 03/21/2021 CR XR STANDING ALIGNMENT from 04/14/2021 CR XR STANDING ALIGNMENT from 04/14/2021 FINDINGS: BONES: No acute fracture is present. No bony destructive lesion is seen. JOINTS: Knees: Bilateral total knee prostheses are new since the previous exam. The ankle joints are unremarkable.There is again noted to be severe narrowing of the left hip joint a nd periarticular spurring.. There is a overall leg length discrepancy at the level of the femoral h noe, with the left femoral head projecting 10 millimeters superior to the left. IMPRESSION: Bilateral knee prostheses. Degenerative changes of the left hip. 1 centimeter leg length discrepanc y. DATA REPOSITORY: RADIATION DOSE DELIVERED:
--- NOTE | 2021-04-14 11:30 | DI.RAD_ITS ---
Exam(s) XR KNEE LT 1V XR STANDING ALIGNMENT XR KNEE RT 1V EXAM: XR KNEE RT 1V CLINICAL HISTORY: 1ST POST OP BILAT TKA. TECHNIQUE: 2D digital imaging was performed. Standing AP views were performed from the pelvis throu gh the ankles. COMPARISON: CR XR STANDING ALIGNMENT from 03/21/2021 CR XR STANDING ALIGNMENT from 03/21/2021 CR XR STANDING ALIGNMENT from 04/14/2021 CR XR STANDING ALIGNMENT from 04/14/2021 FINDINGS: BONES: No acute fracture is present. No bony destructive lesion is seen. JOINTS: Knees: Bilateral total knee prostheses are new since the previous exam. The ankle joints are unremarkable.There is again noted to be severe narrowing of the left hip joint a nd periarticular spurring.. There is a overall leg length discrepancy at the level of the femoral h neo, with the left femoral head projecting 10 millimeters superior to the left. IMPRESSION: Bilateral knee prostheses. Degenerative changes of the left hip. 1 centimeter leg length discrepanc y. DATA REPOSITORY: RADIATION DOSE DELIVERED:
== END 2021-04-14 11:44 | disposition home or self-care (01) ==
LOC: DIORS 11:43
PROVIDERS: PCP Internal Medicine; Referring Provider Internal Medicine; Visit Provider Student in an Organized Health Care Education/Training Program
DX: Z47.1 Aftercare following joint replacement surgery (principal); Z96.653 Presence of artificial knee joint, bilateral; M16.12 Unilateral primary osteoarthritis, left hip; M21.752 Unequal limb length (acquired), left femur
CPT/HCPCS: 73560; 77073

== ENCOUNTER → 2021-05-13 09:52 | Outpatient (BNVA) | payer MEDICARE, OTHER, SELFPAY | PROVIDERS: PCP Internal Medicine; Referring Provider Internal Medicine; Visit Provider Physician Assistant | DX: Z47.1 Aftercare following joint replacement surgery (principal); Z96.653 Presence of artificial knee joint, bilateral ==

== ENCOUNTER → 2021-06-24 09:38 | Outpatient (BNVA) | payer MEDICARE, OTHER, SELFPAY | PROVIDERS: PCP Internal Medicine; Referring Provider Internal Medicine; Visit Provider Student in an Organized Health Care Education/Training Program | DX: Z47.1 Aftercare following joint replacement surgery (principal); Z96.653 Presence of artificial knee joint, bilateral ==

== ENCOUNTER 2022-01-18 01:51 | Outpatient (CLI) | payer MEDICARE, OTHER, SELFPAY ==
--- NOTE | 2022-01-18 | DI.MAMMO_ITS ---
Exam(s) MAMMO SCREENING EXAM: MAMMO SCREENING CLINICAL HISTORY: SCREENING FOR BREAST CANCER Z12.39. TECHNIQUE: Bilateral full field digital CC and MLO mammographic images were obtained with 3D tomosyn thesis and utilizing computer aided detection (CAD). COMPARISON: Prior mammograms were reviewed, the most recent being December 2016. FINDINGS: There has been no significant change in the appearance and distribution of the fibroglandular tissue. There are no new spiculated masses nor malignant appearing microcalcification groups. Small benign-appearing nodules in the left breast are unchanged from 2017. There is no significant architectural distortion nor skin thickening-retraction. IMPRESSION: Stable benign-appearing findings. No radiographic evidence of malignancy. BI-RADS Category 2 - Benign Findings Breast Density - Category B - Scattered areas of fibroglandular density Breast density Category C or D implies that the patient has dense breast tissue. Dense breast tissue can make it harder to find cancer on a mammogram. Dense breast tissue is also associated with an incr eased risk of breast cancer. This information about the result of the mammogram report was provided to the patient to raise their awareness. Use this report when you speak with the patient about their risks for breast cancer, which includes their family history. At that time, you may recommend additional screening tests (Ultrasoun d or MRI) as these tests may add significant information. A negative radiographic report should not delay biopsy if a dominant or clinically suspicious mass is present. Up to ten percent of cancers are not identified on mammography. A negative report may reinforce clinical impression. Adenosis and dense breasts may obscure an underlying neoplasm. False positive reports average 6 to 10%. Patient will receive a letter notifying them of these results.
== END 2022-01-18 02:11 ==
PROVIDERS: PCP Internal Medicine; Visit Provider Family Medicine
DX: Z12.31 Encounter for screening mammogram for malignant neoplasm of breast (principal)
CPT/HCPCS: 77063; 77067

== ENCOUNTER 2022-01-27 18:40 | Outpatient (REF) | payer MEDICARE, OTHER, SELFPAY ==
[2022-01-27 14:47] LABS: HCT 41.4 % (36.0-46.0); HGB 13.1 g/dL (11.2-15.7); MCH 29.6 pg (27.0-33.0); MCHC 31.6 % (32.0-36.0); MCV 93.7 fL (80-95); MPV 12.1 fL (8.0-11.0); Platelet Count 224 10^3/uL (130-400); RBC 4.42 10^6/uL (3.93-5.22); RDW 13.8 % (11.7-14.6); RDW-SD 47.3 fL; WBC 5.97 10^3/uL (4.4-10.8)
[2022-01-27 15:18] LABS: Ferritin 101 ng/mL (8-252); Hemoglobin A1C 5.6 % (<5.7)
== END 2022-01-27 18:41 | disposition home or self-care (01) ==
LOC: NCHCN 18:40
PROVIDERS: PCP Internal Medicine; Visit Provider Family Medicine
DX: E66.9 Obesity, unspecified (principal); D50.9 Iron deficiency anemia, unspecified; E03.9 Hypothyroidism, unspecified
CPT/HCPCS: 85027; 82728; 83036

== ENCOUNTER 2022-03-31 10:46 | Outpatient (CLI) | payer MEDICARE, OTHER, SELFPAY ==
--- NOTE | 2022-03-31 10:30 | DI.RAD_ITS ---
Exam(s) XR KNEE LT 2V AP,LAT XR KNEE RT 2V AP,LAT EXAM: XR KNEE LT 2V AP,LAT INDICATION: annual f/u BILAT TKA. COMPARISON: CR XR KNEE RT 1V from 04/14/2021 CR XR STANDING ALIGNMENT from 04/14/2021 CR XR KNEE LT 1V from 04/14/2021 CR XR KNEE RT 2V AP,LAT from 03/31/2022 TECHNIQUE: 2D digital imaging was performed. Two views. FINDINGS: There has been no change in the appearance of the bilateral total knee prostheses. No abnormal bony lucencies are seen. DATA REPOSITORY: RADIATION DOSE DELIVERED:
== END 2022-03-31 10:47 | disposition home or self-care (01) ==
LOC: DIORS 10:47
PROVIDERS: PCP Internal Medicine; Referring Provider Internal Medicine; Visit Provider Student in an Organized Health Care Education/Training Program
DX: Z96.653 Presence of artificial knee joint, bilateral (principal); M16.12 Unilateral primary osteoarthritis, left hip
CPT/HCPCS: 99215; 73560

== ENCOUNTER 2022-07-13 13:28 | Outpatient (CLI) | payer MEDICARE, OTHER, SELFPAY ==
--- NOTE | 2022-07-13 13:00 | DI.RAD_ITS ---
Exam(s) XR PELVIS AP EXAM: XR PELVIS AP CLINICAL HISTORY: pre op LHA. TECHNIQUE: 2D digital imaging was performed. One view is obtained. FINDINGS: BONES: No acute fracture is present. No bony destructive lesion is seen. JOINTS: No dislocation present. Advanced degenerative changes are seen in the left hip with joint spa ce narrowing, subchondral sclerosis/cysts and bony hypertrophic changes. The right hip is well maint ained. SOFT TISSUE: Normal. IMPRESSION: Osteoarthritis of the left hip. DATA REPOSITORY: RADIATION DOSE DELIVERED:
== END 2022-07-13 13:29 | disposition home or self-care (01) ==
LOC: DIORS 13:28
PROVIDERS: PCP Internal Medicine; Referring Provider Internal Medicine; Visit Provider Physician Assistant
DX: M16.12 Unilateral primary osteoarthritis, left hip (principal); Z01.818 Encounter for other preprocedural examination
CPT/HCPCS: 72170

== ENCOUNTER 2022-07-24 03:26 | Outpatient (CLI) | payer MEDICARE, OTHER, SELFPAY ==
[2022-07-24 08:42] LABS: HCT 38.6 % (36.0-46.0); HGB 12.7 g/dL (11.2-15.7); MCHC 32.9 % (32.0-36.0); MCV 94 fL (80-95); MPV 10.5 fL (8.0-11.0); Platelet Count 201 10^3/uL (130-400); RDW 13.3 % (11.7-14.6); RDW-SD 46.3 fL; WBC 5.74 10^3/uL (4.4-10.8)
[2022-07-24 09:13] LABS: Anion Gap 7.9 mmol/L (3-11); BUN 14 mg/dL (7-18); CO2 29.1 mmol/L (21.0-32.0); CREATININE 0.9 mg/dL (0.55-1.02); Calcium 9.3 mg/dL (8.5-10.1); Chloride 106 mmol/L (98-107); Glucose 93 mg/dL (74-106); Potassium 3.7 mmol/L (3.5-5.1); Sodium 143 mmol/L (136-145)
== END 2022-07-24 03:27 | disposition home or self-care (01) ==
LOC: LBO 03:26
PROVIDERS: PCP Internal Medicine; Visit Provider Student in an Organized Health Care Education/Training Program
DX: M16.12 Unilateral primary osteoarthritis, left hip (principal); Z01.818 Encounter for other preprocedural examination
CPT/HCPCS: 36415; 80048; 85027

== ENCOUNTER 2022-07-25 08:26 | Day surgery (SDC) | payer MEDICARE, OTHER, SELFPAY ==
[2022-07-25] VITALS (9 sets, daily range): BP systolic 112–148; BP diastolic 66–98; PULSE 47–56; RESP 15–18; TEMP 36.2–36.6; O2SAT 94–100; BMI 23.9
--- NOTE | 2022-07-25 07:33 | W.PM.DSUDISC ---
Discharge Plan Disposition Patient Disposition: HOME Condition: Good Discharge Details Reason For Visit: Left JOVANNI Attending Provider: Noe Vallejo Primary Care Provider: José Miguel Mccrary Home Meds and New Rx's Prescriptions: New celecoxib [Celebrex] 200 mg capsule 200 mg PO BID Qty: 60 0RF aspirin 81 mg tablet,delayed release (DR/EC) 81 mg PO BID Qty: 60 0RF acetaminophen 500 mg capsule 1,000 mg PO Q8H PRN PRNQty: 90 0RF Continued ferrous sulfate 325 mg (65 mg iron) tablet 325 mg PO .QOD levothyroxine [Synthroid] 50 mcg tablet 75 mcg PO DAILY ascorbic acid (vitamin C) 1,000 MG tablet 1,000 mg PO DAILY calcium carbonate-vitamin D3 1 EACH tablet 1 tab PO DAILY acetaminophen 500 mg tablet 500 mg PO Q6H PRN (Reason: pain) Qty: 60 2RF omeprazole 20 mg capsule,delayed release(DR/EC) 20 mg PO Q OTHER DAY Discharge Instructions Additional Instructions: Total Hip Discharge Instructions Activity: The most important activity is to walk. You should try to take short walks a few times a day. You have no restrictions on movement or positioning, but do not try to force what you do. You will find some stiffness and weakness with hip flexion (lifting your knee). Do not try to strengthen this too early, continue to practice walking and stairs and this will come. - Outpatient physical therapy can be helpful to help return you to a normal gait and improve your flexibility and strength. This can start around 2 weeks. For some patients, it?s not necessary. Usually this is determined at the time of discharge or at the first post-operative visit. - You should wear the DEVIKA hose on both legs for 2 weeks. Dressing: Keep the surgical dressing in place for at least one week. After the first week it may be removed and replace with light gauze and tape or nothing. It may get wet after 3 days but avoid soaking the dressing. If it gets wet, just lightly pat dry. It is important to always keep some gauze between skin folds, especially when you are sitting. Spend some time with the wound exposed when you are lying flat as the incision does wrinkle onto itself. Medications: - You should take Tylenol and an anti-inflammatory Celebrex as your primary pain control medications. If the Celebrex is too expensive or not covered, please call the office for another alternative (Advil/Ibuprofen or Naproxen/Aleve). - Please contact the office for a stronger pain medication such as Oxycodone for breakthrough pain, if needed. - Continue with your previously prescribed stomach acid reduction agent Omeprazole to help reduce stomach acid and reflux. - You will be taking Aspirin 81mg twice a day for DVT prevention unless instructed otherwise. - If you have constipation you should take Colace or Miralax (both [id number]). It takes most people 3-4 days to have a bowel movement. Follow-up: 2 weeks If you have any acute concerns or questions, please do not hesitate to contact the office at [phone]. You may contact Dr. Vallejo with any questions after hours through the hospital at [phone] or on his cell phone at [phone]. Referrals: Noe Vallejo MD [ [facility] STAFF PHYSICIAN] - Equipment/Supplies: Walker Activity:: Activity as Tolerated Remove Dressings/Wound Care:: Do Not Remove Shower/Bathe:: 72 hours Diet:: As Tolerated Discharge Orders Discharge Orders: Discharge Order (Routine); Ordered 07/25/22 Ordered By: Thais Richmond DS: Diagnosis Discharge Diagnosis (1) Primary osteoarthritis of left hip: Status: Acute
[2022-07-25] MEDS: Acetaminophen 500 MG TAB 1000 MG PO (09:04)
[2022-07-25] MEDS: Celecoxib 200 MG CAP 400 MG PO (09:04)
--- NOTE | 2022-07-25 09:22 | W.ANESPRE ---
General Info Date of Service Date Performed: 07/25/22 Height: 5 ft 7 in Weight: 69.4 kg Body Mass Index (BMI): 23.9 Surgical Procedure: Operation Date: 07/25/22 11:35 Proposed Procedure Side Surgeon p Hip Total Hip Anterior Left Noe Vallejo MD Meds Allergies and Home Medications Allergies Allergy/AdvReac Type Severity Reaction Status Date / Time No Known Allergies Allergy Verified 07/25/22 09:02 Home Medication Medication Instructions Recorded ascorbic acid (vitamin C) 1,000 mg 1,000 mg PO DAILY 08/06/14 tablet calcium carbonate 600 mg-vitamin 1 tab PO DAILY 08/06/14 D3 5 mcg (200 unit) tablet Synthroid 50 mcg tablet 75 mcg PO DAILY 02/21/21 (levothyroxine) acetaminophen 500 mg tablet 500 mg PO Q6H PRN pain #60 tabs 03/29/21 omeprazole 20 mg capsule,delayed 20 mg PO Q OTHER DAY 03/29/21 release ferrous sulfate 325 mg (65 mg 325 mg PO .QOD 07/13/22 iron) tablet acetaminophen 500 mg capsule 1,000 mg PO Q8H PRN PRN #90 caps 07/25/22 aspirin 81 mg tablet,delayed 81 mg PO BID #60 tabs 07/25/22 release celecoxib 200 mg capsule (Celebrex) 200 mg PO BID #60 caps 07/25/22 Current Visit Medications: Current Medications Generic Name Dose Route Start Last Admin Trade Name Freq PRN Reason Stop Dose Admin Acetaminophen 1,000 mg 07/25/22 06:00 07/25/22 09:04 Acetaminophen 500 Mg Tab PO 07/25/22 16:00 1,000 mg PREOP BETTY Administration Acetaminophen 1,000 mg 07/25/22 08:30 Acetaminophen 500 Mg Tab PO TID BETTY Aspirin 81 mg 07/25/22 08:30 Aspirin E.C. 81 Mg Tabec PO BID BETTY Celecoxib 400 mg 07/25/22 06:00 07/25/22 09:04 Celecoxib 200 Mg Cap PO 07/25/22 16:00 400 mg PREOP BETTY Administration Celecoxib 200 mg 07/25/22 08:30 Celecoxib 200 Mg Cap PO BID BETTY Docusate Sodium 100 mg 07/25/22 06:49 Docusate Sodium 100 Mg Cap PO BID PRN PRN Constipation Hydromorphone HCl 0.5 mg 07/25/22 06:49 Hydromorphone 2 Mg/Ml Syr IVP Q2H PRN PRN Tranexamic Acid 1,000 mg/ 60 mls @ 360 mls/hr 07/25/22 06:00 Sodium Chloride IV 07/25/22 16:00 PREOP BETTY Ringer's Solution 1,000 mls @ 80 mls/hr 07/25/22 06:00 IV 08/23/22 23:59 INFUSION BETTY Cefazolin Sodium/Dextrose 2 gm in 50 mls @ 100 mls/hr 07/25/22 06:00 Ancef Duplex IVPB 07/25/22 16:00 PREOP BETTY Cefazolin Sodium/Dextrose 1 gm in 50 mls @ 100 mls/hr 07/25/22 17:00 Ancef Duplex IVPB 07/26/22 09:29 Q8H BETTY IV Miscellaneous Supplies 1 each 07/25/22 06:00 Iv Access IV 08/23/22 23:59 DIRECTED BETTY Ondansetron HCl 4 mg 07/25/22 06:49 Ondansetron 4 Mg/2 Ml Vial IVP Q6H PRN PRN Nausea Oxycodone HCl 0 mg 07/25/22 06:49 Oxycodone 5 Mg Tab PO Q3H PRN PRN Pain Pantoprazole Sodium 40 mg 07/25/22 07:30 Pantoprazole 40 Mg Tabcr PO DAILY@0730 BETTY Sodium Chloride 0 ml 07/25/22 06:00 Normal Saline Flush 10 Ml Syr IV 08/23/22 23:59 PRN PRN Sodium Chloride 0 ml 07/25/22 06:00 Normal Saline 10 Ml Vial IJ 08/23/22 23:59 DIRECTED PRN Sterile Water 0 ml 07/25/22 06:00 Water,Injection,Sterile 10 Ml Vial IJ 08/23/22 23:59 DIRECTED PRN PFSH Active Problems Active Problems: Problem Status Onset Code History of total bilateral knee replacement 03/29/21 Z96.653 Primary osteoarthritis of left hip M16.12 Medical History Medical History Erosive esophagitis GERD (gastroesophageal reflux disease) Hypothyroid Migraine headache Obesity Medical History Comments:: Pt states she bottomed out last double knee surgery when she went to work w/ PT. Surgical History Surgical History (Updated 07/25/22 @ 09:02 by Annia Chowdary RN) Colonoscopy - MAC 2009 Endoscopy 2010 Hx of tonsillectomy Thyroid partial thyroidectomy Tobacco Smoking/Tobacco Use Status: Never Alcohol Alcohol Intake: never Substance Use Substance use: Never Substance use type: does not use Vital Signs and Lab Results Vital Signs Most Recent Vital Signs in EMR: Most Recent Vital Signs Temp Pulse Resp BP Pulse Ox 36.6 C 56 L 18 134/68 98 07/25/22 08:41 07/25/22 08:41 07/25/22 08:41 07/25/22 08:41 07/25/22 08:41 Lab Results Blood Type / Crossmatch: No Data to Display Complete Blood Count: White Blood Count 5.74 10^3/uL (4.4-10.8) 07/24/22 08:40 Red Blood Count 4.10 10^6/uL (3.93-5.22) 07/24/22 08:40 Hemoglobin 12.7 g/dL (11.2-15.7) 07/24/22 08:40 Hematocrit 38.6 % (36.0-46.0) 07/24/22 08:40 Platelet Count 201 10^3/uL (130-400) 07/24/22 08:40 Complete Metabolic Panel: Sodium Level 143 mmol/L (136-145) 07/24/22 08:40 Potassium Level 3.7 mmol/L (3.5-5.1) 07/24/22 08:40 Chloride Level 106 mmol/L (98-107) 07/24/22 08:40 Carbon Dioxide Level 29.1 mmol/L (21.0-32.0) 07/24/22 08:40 Blood Urea Nitrogen 14 mg/dL (7-18) 07/24/22 08:40 Creatinine 0.9 mg/dL (0.55-1.02) 07/24/22 08:40 Calcium Level 9.3 mg/dL (8.5-10.1) 07/24/22 08:40 Glucose Level 93 mg/dL (74-106) 07/24/22 08:40 Liver Function Panel: No Data to Display Coagulation Panel: No Data to Display Cardiac Panel: No Data to Display Arterial Blood Gas: No Data to Display Venous Blood Gas: No Data to Display Pancreas Panel: No Data to Display Thyroid Panel: No Data to Display Infectious Disease: No Data to Display Blood Cultures: No Data to Display Toxicology Panel: No Data to Display Anesthesia Assessment and Plan Anesthesia History Personal History: No History of Anesthesia Complications Family History: No Family History of Anesthesia Complications Exercise Tolerance Exercise Tolerance: Metabolic Equivalents>4 Pertinent Negatives Pertinent Negatives: No Symptoms of GERD, No Major Cardiovascular Symptoms or Complaints, No Major Pulmonary Symptoms or Complaints and No History of CVA/TIA Cardiac & Pulmonary Exam Cardiac Exam: Normal S1/S2 Heart Sounds Pulmonary Exam: Clear Bilateral Breath Sounds Implantable Cardiac Device Does patient have a Pacemaker or an ICD?: No Airway Exam Known Difficult Airway: No Mallampati Class: 3 Mouth Opening: Narrow (< 3cm) Thyromental Distance: Less than 3 cm Neck Range of Motion: Full ROM Neck Circumference: Normal Teeth Condition: Removable Dentures/Plates Upper and Edentulous ASA Classification ASA Score: ASA 2 Emergency Case?: No NPO Status NPO Status: NPO Clears >2 hours, Solids >8 hours Anesthesia Plan Resuscitation Status: Full Code Anesthesia Technique: Spinal Anesthesia (Has arthritic spine) Airway Planned: Natural Airway Monitors Used: Standard Monitors
[2022-07-25] MEDS: Lactated Ringers 1,000 ML 80 ML IV (09:33)
--- NOTE | 2022-07-25 09:52 | DI.RAD_ITS ---
Exam(s) XR HIP LT IN OR EXAM: XR HIP LT IN OR CLINICAL HISTORY: left total hip. TECHNIQUE: 2D digital imaging was performed. COMPARISON: No exams were available for comparison FINDINGS: Fluoroscopy was provided intraoperatively for left hip arthroplasty. See procedure report for details. Total cumulative dose= 2.1133mGy IMPRESSION: DATA REPOSITORY: RADIATION DOSE DELIVERED:
[2022-07-25] MEDS: ceFAZolin 2 GM/50 ML BAG IVPB (10:42)
--- NOTE | 2022-07-25 12:01 | W.PM.OP ---
Date of service: 07/25/22 Time of Service: 11:50 Operative Note Operative Note DATE OF PROCEDURE: 07/25/22 PRE-OP DIAGNOSIS: Left Hip Osteoarthritis POST-OP DIAGNOSIS: same PROCEDURE: Left Anterior Total Hip Arthroplasty with Intraoperative Navigation SURGEON: Noe Vallejo PUBLICATIONS MANAGER: Thais Richmond ANESTHESIA TYPE: Spinal Refer to Anesthesia Record ESTIMATED BLOOD LOSS: 200 PATHOLOGY: none sent TOURNIQUET TIME: 0 COMPLICATIONS: None Patient was transported to: PACU Patient's condition: stable Implants: 1. Depuy Marcus Hook Acetabular Component, 52mm 2. Depuy Acetabular Liner, [id number] 3. Depuy Corail Standard 125 degree Collared Femoral Stem, Size 11 4. Depuy Altrx Ceramic Femoral Head, Size 36+5mm Indications: I have seen Vidya in clinic for symptoms of hip arthritis, confirmed with radiographic findings. She has exhausted nonoperative methods and was having significant limitations in daily function and desired better function and less pain. I discussed the technical details of a hip replacement. I explained the risks of the procedure to include, but not limited to, bleeding, infection, pain, stiffness, fracture, damage to nerves and vessels, damage to muscles and tendons, loosening, instability, leg length inequality, need for repeat procedure, blood clot and cardiopulmonary demise. Despite these risks, Vidya elected to proceed. Findings: There was significant signs of arthritis throughout the hip with large osteophytes surrounding the femoral neck with notable deformity. Procedure Description: Vidya was greeted in the preoperative holding area where the correct side was identified and marked. The consent was reviewed with the patient and signed. The history and physical was updated. All questions were answered. She was taken back to the operating room. A spinal anesthestic was then administered. The feet were wrapped with cast padding and Coban and then placed into the boot liners and then into the boots. Care was taken to protect the skin and make sure the heels were fully down and the boots were stable. The patient was then positioned onto the HANA table. Both legs were held in a neutral position. SCDs were applied. The patient was then slid down onto a peroneal post. Prophylactic antibiotics in the form of Cefazolin were administered. 1g of Tranxemic Acid was given intravenously within 30 minutes of incision. The left leg was then prepped with Chloraprep and draped in a standard fashion. A second prep with Chloraprep was performed prior to placement of a shower-curtain type drape with Iodine impregnated skin protection. A timeout to confirm correct identity, side and site, procedure, allergies, anesthesia, and medical concerns was performed. An obliquely oriented incision was made starting lateral to the ASIS and running distal over the Tensor Fascia Ora (TFL) muscle belly toward the fibular head, approximately 10cm. The skin and soft tissue was dissected sharply, through Michael?s fascia, and to the fascia of the TFL. With the fascia and superior border of the IT band identified, the fascia was incised with a new knife just above any perforators from the IT band. The TFL muscle belly was bluntly dissected away from the fascia and moved laterally. The fat between TFL and rectus was identified to ensure the dissection was not within the TFL. Blunt dissection created space between abductors and the capsule and retractor was placed over the lateral femoral neck. The fibers of the rectus femoris tendon were identified and these were freed from the anterior capsule. A second cobra retractor was placed around the medial femoral neck. The TFL was further retracted laterally to show the deep fascia. Careful dissection through this layer identified three main crossing vessels of the lateral femoral circumflex. These were cauterized in multiple locations and then cut without any noticeable bleeding. The TFL was further released bluntly from the deep fascia to expose anterior hip capsule and fat The Ye orthopaedic retractor was then placed beneath the TFL and against sartorius and medial soft tissues to protect and retract the soft tissues. In general, the tissues were quite friable and oozy. There was no significant bleeding or vessel but a general lacy, friable tissue. A T-capsulotomy was then performed starting at the superior lateral acetabulum and moving distally to the intertrochanteric ridge. These capsular flaps were tagged with a No. 1 Ethibond and elevated from within. The capsular flaps were released to the shoulder of the lateral neck and to the lesser trochanter to give excellent visualization of the proximal femur. There was notable deformity of the femoral neck with large osteophytes. There was also friable synovitis aroudn the hip as well. A neck osteotomy was performed using an oscillating saw based on preoperative templates. This cut started in the shoulder and of the lateral neck and exited medially. The saw was at all times directed medially to avoid injury to the greater trochanter. Gross traction was applied to the leg and the osteotomy opened. The femoral head was removed with a corkscrew, making sure to protect the TFL on its exit. Traction was released after head removal. This was measured on the back table to determine the starting reamer size. Portions of the rectus obscuring visualization were minimally elevated off the superior acetabulum. An anterior retractor was placed over the anterior wall between capsule and labrum and attached to the Gripper retraction system. The femur was rotated to 90 degrees and medial capsule was fully released until the lesser trochanter was palpable and visible; the femur was returned to 30 degrees. A posterior retractor was placed similarly between capsule and labrum. This provided excellent visualization. The contents of the cotyloid fossa were removed with electrocautery and the labrum was removed with a knife. There was a notable floor osteophyte. There was significant chondromalacia of the superior acetabulum. Acetabular reaming began with a 46mm reamer. This first reaming was directed anterior to posterior and medial to get down to the true floor. This was inspected and reamed until the true floor was reached. The anterior retractor was then released and entry and exit was provided by traction on the capsular flaps. I then reamed sequentially up to a 52mm reamer where good fit was obtained. The larger reamers were oriented based on anatomical reference of the anterior and lateral engel to ensure proper abduction and anteversion. Positioning and size was confirmed with the fluoroscopy. A 52mm Depuy Marcus Hook acetabular component was selected. The acetabulum was reamed around the periphery with the selected acetabular size to prevent a rim fit. The deep tissues were irrigated. The acetabular component was then impacted in a position of about 40-45 degrees of abduction and 15-20 degrees of anteversion, using the patient?s anatomy as the ultimate landmark. Fluoroscopy was used to confirm this. There was excellent wiping rag washer of the acetabular component and the inserting handle was removed. The acetabular liner, Depuy [id number] polyethylene liner, was inserted and lined up with the tines of the acetabular component. There was no soft tissue interposition. The liner was then impacted into position and confirmed to be well-seated. A portion of the shon-articular cocktail was then injected around the acetabulum into the capsule and periosteum. This cocktail consisted of 123mg of Ropivacaine, 0.25mg of Epinephrine, 0.04mg of Clonidine, and 15mg of Ketorolac, diluted to 50cc. The leg was rotated to 120 degrees. Any remaining medial capsule was released until the lesser trochanter was easily palpable. A retractor was placed medially. The lateral capsule was further released into the shoulder to allow access to the greater trochanter. A Byrnes retractor was placed over the greater trochanter which allowed the trochanter to flip in front of the capsule for excellent exposure. The leg was brought down into maximal extension and 20 degrees of adduction while ensuring there was no impingement on the acetabulum. Any remnant capsule within the trochanter was released. Piriformis and obturator externis were identified and protected. There was excellent access to the proximal femur. The lateral neck remnant was removed with a rongeur. A blunt canal probe was used to identify the canal and trajectory for later broaching. A box osteotome initiated the broach course. A small curved rasp and a curved curette were used to work laterally. Broaching then began with a size 8 Corail broach. This was inserted manually around the trochanter and into the canal before mallet blows. The broach was seated to a few millimeters below the cut level based on the neck cut and the preoperative template. Sequential broaching was continued with the [employer] pneumatic broaching device until a tight fit was obtained with good rotational control of the femur. A trial standard 125 degree neck was inserted along with a +5 trial head. The leg was brought out of extension and adduction and then reduced with traction and internal rotation. The leg was stable anteriorly in a position of 30 degrees of extension and 90 degrees of external rotation. Fluoroscopy was used to ensure there was no fracture and the stem was seated well. Leg lengths were checked with an AP pelvis and pelvic reference points. Surveypal navigation system was used to confirm appropriate positioning and leg length and offset. Once content with the desired offset and leg lengths, the leg was brought back into extension, external rotation and adduction. The periosteum and surrounding tissue was injected with remaining portion of the shon-articular cocktail. The proximal femur was irrigated as well as the deep tissues. The [employer] Corail standard 125 degree collared stem, size 11, was then manually inserted into the proximal femur making sure to control rotation. It was then malleted into position with light blows, giving breaks to allow bone expansion and decrease risk of fracture. The selected Depuy Altrx Ceramic Head, size 36+5mm, was then placed onto the clean and dry trunnion and secured with impaction onto the tapered fit. The leg was brought back out of extension and adduction and reduced with traction and internal rotation. Stability was confirmed with no shuck at 90 degrees of external rotation and 30 degrees of extension. No impingement through range of motion arc. Final x-ray images were obtained with fluoroscopy to confirm adequate positioning and no intraoperative fracture. The deep tissues were thoroughly irrigated with Surgiphor, betadine solution. This was allowed to sit in the wound for 3 minutes before being thoroughly irrigated out with normal saline. The capsule was then reapproximated with the previously placed Ethibond sutures. The TFL fascia was finally closed with a No. 2 Stratafix, barbed suture. Deep tissues were then reapproximated with 0 Vicryl and a running 2-0 Vicryl. The skin was closed with a running 4-0 Monocryl in a subcuticular fashion. This was reinforced with skin glue. A Mepilex silver dressing was applied. At the end of the case, all counts were correct. Vidya was transferred to the hospital bed without difficulty and suffering no apparent complication. Vidya has a good prognosis. Physical therapy will start today and without restrictions, weight-bearing as tolerated. Aspirin 81mg BID will be used for DVT prophylaxis.
--- NOTE | 2022-07-25 13:20 | PT.INIE ---
Date of service: 07/25/22 Time of Service: 13:20 PT Notes Visit Reasons: Left JOVANNI Physical Therapy Day Surgery Initial Evaluation Date: 07/26/2022 Referring Doctor: RADHA Jean PT Orders: PT CONSULT: S/P Ortho surgery Precautions: WBAT on left LE with AD. Patient Profile/Admitting Diagnosis: Vidya is a 67-year-old female with degenerative joint disease of the left hip and is status post anterior left total hip arthroplasty on postoperative day 0. PMHX: Medical History? Erosive esophagitis GERD (gastroesophageal reflux disease) Hypothyroid Migraine headache Obesity Surgical History? Colonoscopy - MAC 2009 Endoscopy 2009 History of total bilateral knee replacement (03/29/21) Thyroid partial thyroidectomy Social History/Home Situation: Lives with in a private room with one-step to enter with 1 rail. Daughter will be a very good support as well as patient recovers. Equipment Owned/DME: [facility] Subjective: Agreeable to PT consult. Denies pain, numbness, and lightheadedness throughout session. States that she exercises at least 3 hours every day. Objective: General Observation: Mepilex Ag over surgical incision. TEDS in B legs. Cold pack over L hip. Mental Status: Alert and oriented x 4 Pain: 0/10 ROM: Right Lower Extremity: Hip flexion WFL. Hip abduction WFL. Knee flexion WFL. Ankle dorsiflexion WFL. Ankle plantarflexion WFL. Left Lower Extremity: Hip flexion WFL. Hip abduction WFL. Knee flexion WFL. Ankle dorsiflexion WFL. Ankle plantarflexion WFL. Strength: Right Lower Extremity: Hip flexors 5/5. Hip abductors 5/5. Knee flexors 5/5. Knee extensors 5/5. Ankle dorsiflexors 5/5. Ankle plantarflexors 5/5. Left Lower Extremity: Hip flexors 4/5. Hip abductors 4/5. Knee flexors 5/5. Knee extensors 4/5. Ankle dorsiflexors 5/5. Ankle plantarflexors 5/5. Sensation: Intact as to pain and light pressure in B LE Bed Mobility/Transfers: Supine to sit stand by assist Sit to stand stand by assist Stand to sit stand by assist Bed to chair stand by assist Gait: Tolerated level surface ambulation of 150 feet using front wheeled walker with step through gait pattern without report of increased pain. Denies headache, chest pain, and lightheadedness throughout session. No SOB. Stairs: Up and down 3 x 4 inch steps of holding onto bilateral rails with step-to gait pattern without report of increased pain. Balance: Static Sitting: Normal Dynamic Sitting: Normal Static Standing: Fair Dynamic Standing: fair Special Tests: Mobility Limitations Standardized Measure [facility] 6 clicks Basic Mobility Inpatient Short Form: Raw Score: 24 CMS Score: 0% deficit Informed Consent/Education: Patient instructed in purpose of PT consult. Education and training on initial set of exercises that can be done at home have been completed with patient. Assessment: Patient requires the use of a front wheel walker for all mobility ADL performance to maximize independence and reduce fall risk. Patient presents with clinical signs and symptoms consistent with current/admitting diagnoses that have resulted to mobility limitations, gait instability, generalized weakness, and impairment of motor control as demonstrated by the following impairment level findings: 1. Decreased strength to left hip major muscle groups 2. Impaired standing balance Impairments are contributing to the following functional limitations: 1. Inability to safely ambulate without assistive device 2. Increase completion time for mobility ADL performance 3. Increased fall risk Patient is assessed as a 79912 moderate complexity based on the following: History: 67-year-old female with impairment level findings, functional limitations, and past medical history as indicated above Examination: Demonstrable impairment in strength, balance, and mobility level with underlying impairments and functional limitations as documented above Presentation: Evolving Decision Makin moderate complexity Goals: N/A. PT evaluation and 1-2 treatment sessions only for functional mobility training using recommended AD and for HEP instruction. Plan of Care/Treatment Plan: N/A. PT evaluation and 1-2 treatment session only for functional mobility training using recommended AD and for HEP instruction. DISCHARGE RECOMMENDATIONS: [] Home with no services [] [] Home with services [specify] [X] Home with outpatient PT. Home when medically cleared by orthopedic surgeon. Will benefit from outpatient PT services to maximize functional mobility outcomes and facilitate independent community ambulation without an assistive device. [] SNF for continued rehabilitation [] [] [facility] [] [] SNF versus LTC based on ability to participate and progress [] TREATMENT CODE/TIME: 48636 x 20 minutes, 77299 x 12 minutes beginning at 13:20 PM. Thank you for the opportunity to participate in the care of this patient. Annie Regalado PT, DPT, CLT [facility] [place], [place]
--- NOTE | 2022-07-25 14:56 | W.ANESPOSTOP ---
Postoperative Evaluation Date, Time and Location Date Performed: 07/25/22 Time Performed: 13:40 Patient Location: Day Surgery Unit Vital Signs Most Recent Imported Vital Signs: Most Recent Vital Signs Temp Pulse Resp BP Pulse Ox 36.2 C L 47 L 17 112/66 100 07/25/22 13:30 07/25/22 13:30 07/25/22 13:30 07/25/22 13:30 07/25/22 13:30 Pain Score Most Recent Pain Score: Most Recent Pain Score Pain Level 0 07/25/22 13:30 Assessment Mental Status: Awake (Alert & Oriented to Patient Baseline) Airway and Respiratory Function: Patent airway with normal (patient baseline) respiratory exam Cardiovascular Function: Hemodynamically Stable Hydration Status: Adequately Hydrated Nausea & Vomiting: No Nausea or Vomiting Pain: Pt. Denies Any Pain Peripheral Nerve Block: Patient did not receive a nerve block Postoperative Comments:: Up ambulating with PT.
== END 2022-07-25 14:45 | disposition home or self-care (01) ==
PROVIDERS: PCP Internal Medicine; Visit Provider Student in an Organized Health Care Education/Training Program
PROC: (CPT 27130; principal; 2022-07-25 11:15)
DX: M16.12 Unilateral primary osteoarthritis, left hip (principal); K21.9 Gastro-esophageal reflux disease without esophagitis; E89.0 Postprocedural hypothyroidism
CPT/HCPCS: 20985; 27130; C1776; 97162; 97530; 73501; J0690; J2250; J2405

== ENCOUNTER 2022-08-07 15:05 | Outpatient (CLI) | payer MEDICARE, OTHER, SELFPAY ==
--- NOTE | 2022-08-07 14:45 | DI.RAD_ITS ---
Exam(s) XR HIP LT COMPLETE AP PELVIS EXAM: XR HIP LT COMPLETE AP PELVIS INDICATION: s/p JOVANNI. COMPARISON: CR XR PELVIS AP from 07/13/2022 XA XR HIP LT IN OR from 07/25/2022 TECHNIQUE: 2D digital imaging was performed. Three views. FINDINGS: There has been no change in the alignment of the left hip prosthesis. There are no abnormal surround ing bony lucencies. The right hip shows mild degenerative changes. IMPRESSION: No acute abnormality. DATA REPOSITORY: RADIATION DOSE DELIVERED:
== END 2022-08-07 15:06 | disposition home or self-care (01) ==
LOC: DIORS 15:05
PROVIDERS: PCP Internal Medicine; Referring Provider Internal Medicine; Visit Provider Physician Assistant Surgical
DX: Z47.1 Aftercare following joint replacement surgery; Z96.642 Presence of left artificial hip joint
CPT/HCPCS: 73502

== ENCOUNTER 2022-08-11 18:15 | Outpatient (REF) | payer MEDICARE, SELFPAY ==
[2022-08-11 17:16] LABS: TSH 1.99 uIU/mL (0.36-3.74)
== END 2022-08-11 18:16 | disposition home or self-care (01) ==
LOC: NCHCN 18:15
PROVIDERS: PCP Internal Medicine; Visit Provider Family Medicine
DX: E03.9 Hypothyroidism, unspecified (principal)
CPT/HCPCS: 84443

== ENCOUNTER → 2022-09-04 14:33 | Outpatient (BNVA) | payer MEDICARE, SELFPAY | PROVIDERS: PCP Internal Medicine; Referring Provider Internal Medicine; Visit Provider Student in an Organized Health Care Education/Training Program | DX: Z47.1 Aftercare following joint replacement surgery (principal); Z96.642 Presence of left artificial hip joint ==

== ENCOUNTER 2023-02-28 01:46 | Outpatient (CLI) | payer MEDICARE, SELFPAY ==
--- NOTE | 2023-02-28 07:45 | DI.US_ITS ---
Exam(s) US PELVIS TRANSVAGINAL EXAM: US PELVIS TRANSVAGINAL CLINICAL HISTORY: check stripe,postmenopausal bleeding,n95.0 TECHNIQUE: Transabdominal and transvaginal imaging was performed using standard protocol. COMPARISON: None FINDINGS: UTERUS: Anteverted. 4.8 x 2.4 x 4.2 cm. Cm Endometrium: 2 millimeters, small amount of fluid within endometrium. No focal abnormality seen. Myometrium: Unremarkable. Cervix: Unremarkable. OVARIES: Not visualized. CUL-DE-SAC: Free fluid: None. Bladder: 1.5 x 1.3 x 1.8 centimeter nonvascular mass visible at the floor of the bladder. IMPRESSION: 1. Normal-appearing uterus with endometrial stripe within normal limits. Small amount of fluid withi n the medial cavity. 2. Ovaries not visualized. 3. 1.8 cm bladder mass. Cystoscopy recommended. DATA REPOSITORY:
== END 2023-02-28 02:06 ==
LOC: DI 01:46
PROVIDERS: PCP Internal Medicine; Visit Provider Obstetrics & Gynecology
DX: N95.0 Postmenopausal bleeding (principal)
CPT/HCPCS: 76830; 76856

== ENCOUNTER → 2023-03-08 08:43 | Outpatient (BNVA) | payer MEDICARE, SELFPAY | PROVIDERS: PCP Internal Medicine; Referring Provider Internal Medicine; Visit Provider Nurse Practitioner Gerontology | DX: N32.89 Other specified disorders of bladder (principal); R31.9 Hematuria, unspecified | CPT/HCPCS: 36415; 81003; 99215 ==

== ENCOUNTER 2023-03-08 10:35 | Outpatient (REF) | payer MEDICARE, SELFPAY ==
[2023-03-08 11:19] LABS: CREATININE 0.8 mg/dL (0.55-1.02); Estimated GFR 79.71 (mL/min/1.73m2)
== END 2023-03-08 10:36 | disposition home or self-care (01) ==
LOC: LBN 10:35
PROVIDERS: PCP Internal Medicine; Visit Provider Nurse Practitioner Gerontology
DX: R31.9 Hematuria, unspecified (principal)
CPT/HCPCS: 82565

== ENCOUNTER 2023-03-09 00:29 | Outpatient (CLI) | payer MEDICARE, SELFPAY ==
[2023-03-09] MEDS: Omnipaque 350 MG/ML 500 ML BTL-Imaging package 100 ML IJ (08:22)
[2023-03-09] MEDS: Normal Saline - Diluent 50 ML VIAL IJ (08:22)
--- NOTE | 2023-03-09 08:37 | DI.CT_ITS ---
Exam(s) CT ABDOMEN PELVIS WO/W EXAM: CT ABDOMEN PELVIS WO/W CLINICAL HISTORY: Eval of mass area in bladder; kidney concerns?,HEMATURIA,N32.89,R31.9. TECHNIQUE: Imaging Protocol: Axial computed tomography images with coronal and sagittal reformatted images were created and reviewed CONTRAST MATERIAL: Intravenous: Omnipaque-350 100cc Oral: None COMPARISON: US US PELVIS TRANSVAGINAL from 02/28/2023 FINDINGS: VISUALIZED LUNG BASES: No nodules nor pleural effusions evident. Large hiatal hernia noted. ABDOMEN: There is no ascites. LIVER: There are few small sub cm benign-appearing cysts in the liver. Largest of these measures 7 m m. No dilated intrahepatic ducts. No dilated intrahepatic ducts. GALLBLADDER/BILIARY: No obvious gallbladder pathology. CBD is not dilated. PANCREAS: No evidence of pancreatic mass nor dilatation of the pancreatic duct. SPLEEN: Spleen is not enlarged. No obvious intrasplenic lesions. Splenic and portal veins are paten t. ADRENALS: There are no significant adrenal masses. KIDNEYS:No cysts evident. No solid renal masses. No calculi nor hydronephrosis.. There are no cons istent filling defects in the nondilated renal pelves. A patent retroaortic left renal vein is noted . ABDOMINAL AORTA: Abdominal aorta is not enlarged. IVC: the iliac veins as well as the ivc are prominent in diameter. the intrahepatic ivc measures 3.5 cm diameter. the diameter the common iliac veins is 1.8 cm. external iliac veins are also prominen t. LYMPH NODES:There is no retroperitoneal nor paraaortic adenopathy. ABDOMINAL WALL: No evidence of significant anterior abdominal wall nor inguinal hernia. GI: There is no evidence of bowel obstruction, free air, nor abscess. PELVIS: GI: No evidence of appendicitis.No evidence of sigmoid diverticulitis. LYMPH NODES: There is no intrapelvic nor inguinal adenopathy. REPRODUCTIVE: Age-appropriate. No abnormal adnexal masses. No free fluid in the pelvis URINARY BLADDER: Urinary bladder is partially collapsed and difficult to assess. Ureters are not dil ated. OSSEOUS: No fractures and no significant osseous lesions. Left hip prosthesis noted. IMPRESSION: 1. No significant focal findings in the kidneys. No hydronephrosis. 2. Urinary bladder is mostly collapsed and difficult to assess for masses. The ureters are not dilat ed. 3. Retroaortic left renal vein incidentally noted. 4. The iliac veins and IVC are prominent. May indicate an element of right heart failure RADIATION DOSE DELIVERED: 2,354.36mGy.cm Total DLP DATA REPOSITORY: All CT scans at this facility are submitted to the National Radiology Data Registry (NRDR) Dose Index Registry (DIR) with the [employer] (ACR). RADIATION OPTIMIZATION: All CT scans at this facility use at least one of these dose optimization te chniques: automated exposure control; mA and/or kV adjustment per patient size (includes targeted exa ms where dose is matched to clinical indication); or iterative reconstruction.
== END 2023-03-09 00:49 ==
LOC: DI 00:30
PROVIDERS: PCP Internal Medicine; Visit Provider Nurse Practitioner Gerontology
DX: N32.89 Other specified disorders of bladder (principal); R31.9 Hematuria, unspecified
CPT/HCPCS: 74178

== ENCOUNTER → 2023-03-29 08:02 | Outpatient (BNVA) | payer MEDICARE, SELFPAY | PROVIDERS: PCP Internal Medicine; Referring Provider Internal Medicine; Visit Provider Nurse Practitioner Gerontology | DX: N32.89 Other specified disorders of bladder (principal) | CPT/HCPCS: 99442 ==

== ENCOUNTER 2023-04-09 07:18 | Day surgery (SDC) | payer MEDICARE, SELFPAY ==
--- NOTE | 2023-04-09 06:20 | W.ANESPRE ---
General Info Date of Service Date Performed: 04/09/23 Height: 5 ft 5.5 in Weight: 67.132 kg Body Mass Index (BMI): 24.2 Surgical Procedure: Operation Date: 04/09/23 08:55 Proposed Procedure Side Surgeon p Cysto, Possible Transurethral Resection Bladder Tumor Geoff Guzman MD Meds Allergies and Home Medications Allergies Allergy/AdvReac Type Severity Reaction Status Date / Time No Known Allergies Allergy Verified 03/08/23 08:55 Home Medication Medication Instructions Recorded ascorbic acid (vitamin C) 1,000 mg 1,000 mg PO DAILY 08/06/14 tablet calcium carbonate 600 mg-vitamin 1 tab PO DAILY 08/06/14 D3 5 mcg (200 unit) tablet Synthroid 50 mcg tablet 75 mcg PO DAILY 02/21/21 (levothyroxine) acetaminophen 500 mg tablet 500 mg PO Q6H PRN pain #60 tabs 03/29/21 omeprazole 20 mg capsule,delayed 20 mg PO Q OTHER DAY 03/29/21 release acetaminophen 500 mg capsule 1,000 mg PO Q8H PRN PRN #90 caps 07/25/22 Current Visit Medications: Current Medications Generic Name Dose Route Start Last Admin Trade Name Freq PRN Reason Stop Dose Admin Ringer's Solution 1,000 mls @ 80 mls/hr 04/09/23 06:00 IV 05/06/23 23:59 INFUSION BETTY Cefazolin Sodium/Dextrose 2 gm in 50 mls @ 100 mls/hr 04/09/23 06:00 Ancef Duplex IVPB 05/06/23 23:59 PREOP BETTY IV Miscellaneous Supplies 1 each 04/09/23 06:00 Iv Access IV 05/06/23 23:59 DIRECTED BETTY Sodium Chloride 0 ml 04/09/23 06:00 Normal Saline Flush 10 Ml Syr IV 05/06/23 23:59 PRN PRN Sodium Chloride 0 ml 04/09/23 06:00 Normal Saline 10 Ml Vial IJ 05/06/23 23:59 DIRECTED PRN Sterile Water 0 ml 04/09/23 06:00 Water,Injection,Sterile 10 Ml Vial IJ 05/06/23 23:59 DIRECTED PRN PFSH Active Problems Active Problems: Problem Status Onset Code Bladder mass N32.89 Cystocele with first degree uterine prolapse N81.2 Post-menopausal bleeding N95.0 Medical History Medical History Erosive esophagitis GERD (gastroesophageal reflux disease) Hypothyroid Migraine headache Obesity Medical History Comments:: Pt states she bottomed out last double knee surgery when she went to work w/ PT. Surgical History Surgical History Colonoscopy - MAC 2009 Endoscopy 2010 History of total bilateral knee replacement (03/29/21) History of total left hip replacement (07/25/22) Hx of tonsillectomy Thyroid partial thyroidectomy Tobacco Smoking/Tobacco Use Status: Never Alcohol Alcohol Intake: never Substance Use Substance use: Never Substance use type: does not use Vital Signs and Lab Results Vital Signs Most Recent Vital Signs in EMR: Temp Pulse Resp BP Pulse Ox 36.3 C L 62 16 120/72 98 04/09/23 07:36 04/09/23 07:36 04/09/23 07:36 04/09/23 07:36 04/09/23 07:36 Lab Results Blood Type / Crossmatch: No Data to Display Complete Blood Count: No Data to Display Complete Metabolic Panel: No Data to Display Liver Function Panel: No Data to Display Coagulation Panel: No Data to Display Cardiac Panel: No Data to Display Arterial Blood Gas: No Data to Display Venous Blood Gas: No Data to Display Pancreas Panel: No Data to Display Thyroid Panel: No Data to Display Infectious Disease: No Data to Display Blood Cultures: No Data to Display Toxicology Panel: No Data to Display Anesthesia Assessment and Plan Anesthesia History Personal History: No History of Anesthesia Complications Family History: No Family History of Anesthesia Complications Exercise Tolerance Exercise Tolerance: Metabolic Equivalents>4 Cardiac & Pulmonary Exam Cardiac Exam: Normal S1/S2 Heart Sounds Pulmonary Exam: Clear Bilateral Breath Sounds Implantable Cardiac Device Does patient have a Pacemaker or an ICD?: No Airway Exam Known Difficult Airway: No Mallampati Class: 3 Mouth Opening: Narrow (< 3cm) Thyromental Distance: Less than 3 cm Neck Range of Motion: Full ROM Neck Circumference: Normal Teeth Condition: Removable Dentures/Plates Upper and Edentulous ASA Classification ASA Score: ASA 2 Emergency Case?: No NPO Status NPO Status: NPO Clears >2 hours, Solids >8 hours Anesthesia Plan Resuscitation Status: Full Code Anesthesia Technique: General Anesthesia Airway Planned: Natural Airway Monitors Used: Standard Monitors Preoperative Comments:: 67 yo female with bladder mass on US for cysto, ? TURBT. Sig PMHx: GERD/erosive esophagitis (omeprazole 20 daily, well controlled), hypothyroid (on replacement), migraine. Mentioned that she was told something about heart failure. Has a CT of abd/pelvis with prominent iliac/IVC. She denies any shortness of breath/chest pain/difficulty breathing with exertion and has no problem going up stairs (I was mowing my lawn the next day after my hip replacement). Previous Anes: - TKA, spinal, prop sedation, no issues. - JOVANNI, spinal, prop sedation, no issues.
[2023-04-09 07:36] VITALS: BP 120/72; PULSE 62; RESP 16; TEMP 36.3; O2SAT 98
[2023-04-09 07:48] VITALS: BMI 24.2
--- NOTE | 2023-04-09 08:17 | W.PM.HP.N ---
Date of service: 04/09/23 Time of Service: 08:17 Assessment and Plan Assessment and plan (1) Bladder mass: Status: Acute Assessment and plan: We will perform cystoscopy and be prepared to do a TURBT if a bladder mass is identified. History of Present Illness History of Present Illness Chief Complaint: Bladder mass Narrative: This is a 67-year-old woman who initially presented with a pelvic mass. She felt a bulge in the vaginal cavity when she was active. She was evaluated with a pelvic ultrasound which showed a 1.8 cm bladder mass. She was then evaluated with a CT urogram. Her bladder was not distended enough to evaluate for the presence or absence of a mass. She presents for cystoscopy. She has not had any gross hematuria. Microscopically, her urinalysis has been normal. Review of Systems Narrative: No fevers or chills No vision change or dysphasia Hx hypothyroidism. No diabetes No shortness of breath, cough or hemoptysis No chest pain or palpitations GERD. No nausea, vomiting, hepatitis, ulcers, jaundice No seizures, strokes or peripheral neuropathy No bleeding disorders or anemia No gout PFSH All Active Problems Bladder mass (Acute) Cystocele with first degree uterine prolapse (Acute) Post-menopausal bleeding (Acute) Medical History Erosive esophagitis GERD (gastroesophageal reflux disease) Hypothyroid Migraine headache Obesity Surgical History Colonoscopy - MAC 2009 Endoscopy 2009 History of total bilateral knee replacement (03/29/21) History of total left hip replacement (07/25/22) Hx of tonsillectomy Thyroid partial thyroidectomy Social History Smoking/Tobacco Use Status: Never Smoking risk assessment performed?: Yes Alcohol Intake: never Drug use: Never Substance use type: does not use current occupation: retired - used to work at a bank; 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 Current gender identity: female Do you feel safe at home: Yes Do you feel safe in your relationship?: Yes Meds Allergies and Home Medications Allergies Allergy/AdvReac Type Severity Reaction Status Date / Time No Known Allergies Allergy Verified 03/08/23 08:55 Home Medications Medication Instructions Recorded Confirmed Type ascorbic acid (vitamin C) 1,000 mg 1,000 mg PO DAILY 08/06/14 03/29/23 History tablet calcium carbonate 600 mg-vitamin 1 tab PO DAILY 08/06/14 03/29/23 History D3 5 mcg (200 unit) tablet Synthroid 50 mcg tablet 75 mcg PO DAILY 02/21/21 03/29/23 History (levothyroxine) acetaminophen 500 mg tablet 500 mg PO Q6H PRN pain #60 tabs 03/29/21 03/29/23 Rx omeprazole 20 mg capsule,delayed 20 mg PO Q OTHER DAY 03/29/21 03/29/23 History release acetaminophen 500 mg capsule 1,000 mg PO Q8H PRN PRN #90 caps 07/25/22 03/29/23 Rx Exam Const General: cooperative Neck Neck: supple Resp Effort & Inspection: normal respiratory effort Auscultation: clear to auscultation bilaterally Cardio Rate: regular rate Rhythm: regular rhythm GI Palpation: soft and no masses Neuro General: patient alert, patient awake and patient oriented x3 Results Last Vital Signs Temp 36.3 C L 04/09/23 07:36 Pulse 62 04/09/23 07:36 Resp 16 04/09/23 07:36 BP 120/72 04/09/23 07:36 Pulse Ox 98 04/09/23 07:36 Time Spent Time spent with Patient: <40 minutes Time was spent: other
[2023-04-09] MEDS: Lactated Ringers 1,000 ML 80 ML IV (08:36)
[2023-04-09] MEDS: ceFAZolin 2 GM/50 ML BAG IVPB (08:47)
[2023-04-09] MEDS: Lidocaine 2% Jelly 11 ML SYR (09:00)
--- NOTE | 2023-04-09 09:06 | BLADDER_PTH ---
PATIENT: Vidya Cuadra LOC: [facility] U#:[id number] AGE/SX: 67/F ROOM: RE04/09/[address]: Geoff Guzman MD : [id number] BED: DIS: 04/09/2023 SPEC #: [id number] RECD: 04/09/23 13:07 STATUS: AMANDA REArnaldo #: [id number] DHRUV: 04/09/23 09:[address]: Geoff Guzman DEPT: Surgical Specimen RECD BY: Esme Chavez ENTERED: 04/09/23 13:08 SP TYPE: Bladder OTHR DR: Kenney Maguire Tissues: 1 - BLADDER BIOPSY Procedures: GROSS AND MICRO LEVEL 4 Comments: [id number]
--- NOTE | 2023-04-09 09:16 | W.PM.DSUDISC ---
Date of service: 04/09/23 Time of Service: 09:16 Discharge Plan Disposition Patient Disposition: Home Condition: Stable Discharge Details Reason For Visit: cystoscopy Attending Provider: Geoff Guzman Primary Care Provider: Kenney Maguire Home Meds and New Rx's Prescriptions: No Action levothyroxine [Synthroid] 50 mcg tablet 75 mcg PO DAILY ascorbic acid (vitamin C) 1,000 MG tablet 1,000 mg PO DAILY calcium carbonate-vitamin D3 1 EACH tablet 1 tab PO DAILY acetaminophen 500 mg tablet 500 mg PO Q6H PRN (Reason: pain) Qty: 60 2RF omeprazole 20 mg capsule,delayed release(DR/EC) 20 mg PO Q OTHER DAY acetaminophen 500 mg capsule 1,000 mg PO Q8H PRN PRNQty: 90 0RF Discharge Instructions Additional Instructions: followup 1 to 2 weeks for pathology results Activity:: Activity as Tolerated Shower/Bathe:: 24 hours Diet:: As Tolerated Discharge Orders Discharge Orders: Discharge Order (Routine); Ordered 04/09/23 Ordered By: Geoff Guzman DS: Diagnosis Discharge Diagnosis (1) Bladder mass: Status: Acute
--- NOTE | 2023-04-09 09:20 | W.PM.OP ---
Date of service: 04/09/23 Time of Service: 09:20 Operative Note Operative Note DATE OF PROCEDURE: 04/09/23 PRE-OP DIAGNOSIS: Bladder mass POST-OP DIAGNOSIS: same PROCEDURE: cystoscopy, bladder biopsy with fulguration of biopsy site SURGEON: Geoff Guzman ANESTHESIA TYPE: General:No Airway Refer to Anesthesia Record ESTIMATED BLOOD LOSS: 5 PATHOLOGY: other (bladder biopsy) COMPLICATIONS: None Patient was transported to: same day Patient's condition: stable Implants: none Indications: This is a 67-year-old woman who has a history of a pelvic mass which occurs whenever she exercises. On examination, the mass appears to be a cystocele. She was evaluated with a pelvic ultrasound which appeared to show a 1.8 cm mass in the bladder. She presents now for cystoscopy. She has not had any gross hematuria nor has she had microscopic hematuria. Findings: extrinsic mass with normal overlying mucosa Procedure Description: The patient was given preoperative IV antibiotics. She was brought to the operating room on 04/09/2023. 2% Xylocaine jelly was instilled into the urethra to act as a local anesthetic. A 22 Indonesian rigid cystoscope was passed through the urethra into the bladder. The bladder was inspected using both a 30 and a 70 degree lens Both ureteral orifices appeared normal with no blood coming from either side. The bladder was smooth-walled with no papillary or nodular mucosal based lesions. Up towards the dome of the bladder, there was a round indentation pushing down into the lumen of the bladder. The mucosa overlying this area appeared completely normal with no prominent blood vessels. The appearance of this area was most consistent with an extrinsic lesion. I went ahead and biopsied the area with a cold cup biopsy forceps. We sent the biopsy to the lab for permanent section. We cauterized the biopsy site using bipolar Bugbee. She tolerated this procedure well with no complications.
[2023-04-09 09:26] VITALS: BP 104/76; PULSE 52; RESP 16; TEMP 36.3; O2SAT 98
--- NOTE | 2023-04-09 09:44 | W.ANESPOSTOP ---
Postoperative Evaluation Date, Time and Location Date Performed: 04/09/23 Time Performed: 09:44 Patient Location: Day Surgery Unit Vital Signs Most Recent Imported Vital Signs: Most Recent Vital Signs Temp Pulse Resp BP Pulse Ox 36.3 C L 52 L 16 104/76 98 04/09/23 09:26 04/09/23 09:26 04/09/23 09:26 04/09/23 09:26 04/09/23 09:26 Pain Score Most Recent Pain Score: Most Recent Pain Score Pain Level 0 04/09/23 09:26 Assessment Mental Status: Awake (Alert & Oriented to Patient Baseline) Airway and Respiratory Function: Patent airway with normal (patient baseline) respiratory exam Cardiovascular Function: Hemodynamically Stable Hydration Status: Adequately Hydrated Nausea & Vomiting: No Nausea or Vomiting Pain: Pain is tolerable per patient Peripheral Nerve Block: Patient did not receive a nerve block
[2023-04-09 09:57] VITALS: BP 148/73; PULSE 42; RESP 16; TEMP 36; O2SAT 99
[2023-04-09] MEDS: Phenazopyridine 200 MG TAB PO (10:06)
== END 2023-04-09 10:42 | disposition home or self-care (01) ==
PROVIDERS: PCP Family Medicine; Visit Provider Urology
PROC: 0TBB8ZZ Excision of Bladder, Via Natural or Artificial Opening Endoscopic (ICD-10-PCS; CPT 52204; principal; 2023-04-09 08:45)
DX: N32.89 Other specified disorders of bladder (principal); N95.0 Postmenopausal bleeding; K21.9 Gastro-esophageal reflux disease without esophagitis; E03.9 Hypothyroidism, unspecified
CPT/HCPCS: 52204; 88305; J0690; J1100; J2405

== ENCOUNTER → 2023-04-27 10:51 | Outpatient (BNVA) | payer MEDICARE, SELFPAY | PROVIDERS: PCP Family Medicine; Referring Provider Family Medicine; Visit Provider Urology | DX: N32.89 Other specified disorders of bladder (principal) | CPT/HCPCS: 99212 ==

== ENCOUNTER 2023-07-30 15:21 | Outpatient (CLI) | payer MEDICARE, SELFPAY ==
--- NOTE | 2023-07-30 12:45 | DI.RAD_ITS ---
Exam(s) XR HIP LT AP LAT ONLY EXAM: XR HIP LT AP LAT ONLY CLINICAL HISTORY: annual f/u L JOVANNI. TECHNIQUE: 2D digital imaging was performed. COMPARISON: CR XR HIP LT COMPLETE AP PELVIS from 08/07/2022 FINDINGS: Two views. There is continued stable position alignment of the components of the left hip prosthesis. No fractu res nor loosening evident. IMPRESSION: Satisfactory stable appearance. DATA REPOSITORY: RADIATION DOSE DELIVERED:
== END 2023-07-30 15:22 | disposition home or self-care (01) ==
LOC: DIORS 15:22
PROVIDERS: PCP Family Medicine; Visit Provider Student in an Organized Health Care Education/Training Program
DX: Z96.642 Presence of left artificial hip joint (principal); Z47.1 Aftercare following joint replacement surgery
CPT/HCPCS: 99213; 73502

== ENCOUNTER 2023-08-06 16:19 | Outpatient (REF) | payer MEDICARE, SELFPAY ==
[2023-08-06 14:40] LABS: Abs Immature Grans 0.01 10^3/uL (0.0-0.06); Absolute Basophil Count 0.04 10^3/uL (0.0-0.2); Absolute Eosinophil Count 0.04 10^3/uL (0.0-0.7); Absolute Lymphocyte Count 1.28 10^3/uL (1.2-3.4); Absolute Monocyte Count 0.29 10^3/uL (0.1-0.8); Absolute Neutrophil Count 3.54 10^3/uL (1.2-6.7); Basophils % 0.8; Eosinophils % 0.8; HCT 39.5 % (36.0-46.0); HGB 12.8 g/dL (11.2-15.7); Immature Grans % 0.2; Lymphocytes % 24.6; MCH 30.4 pg (27.0-33.0); MCHC 32.4 % (32.0-36.0); MCV 94 fL (80-95); MPV 10.6 fL (8.0-11.0); Monocytes % 5.6; Platelet Count 225 10^3/uL (130-400); RBC 4.21 10^6/uL (3.93-5.22); RDW 13.2 % (11.7-14.6); RDW-SD 45.8 fL
[2023-08-06 15:02] LABS: ALT 23 U/L (14-59); AST 23 U/L (15-37); Albumin 3.8 g/dL (3.4-5.0); Alkaline Phosphatase 58 U/L (46-116); BUN 18 mg/dL (7-18); Bilirubin, Total 1.4 mg/dL (0.2-1.0); CREATININE 0.9 mg/dL (0.55-1.02); Calcium 9.3 mg/dL (8.5-10.1); Chloride 105 mmol/L (98-107); Estimated GFR 68.77 (mL/min/1.73m2); Glucose 86 mg/dL (74-106); Sodium 142 mmol/L (136-145); TSH (W/Ref FT4) 1.02 uIU/mL (0.36-3.74); Total Protein 6.5 g/dL (6.4-8.2)
== END 2023-08-06 16:20 | disposition home or self-care (01) ==
LOC: NCHCN 16:19
PROVIDERS: PCP Family Medicine; Visit Provider Family Medicine
DX: E03.9 Hypothyroidism, unspecified (principal); D50.9 Iron deficiency anemia, unspecified; K21.9 Gastro-esophageal reflux disease without esophagitis
CPT/HCPCS: 80053; 84443; 85025

== ENCOUNTER 2024-08-05 14:55 | Outpatient (REF) | payer MEDICARE, SELFPAY ==
[2024-08-05 15:13] LABS: Abs Immature Grans 0.01 10^3/uL (0.0-0.06); Absolute Basophil Count 0.05 10^3/uL (0.0-0.2); Absolute Eosinophil Count 0.05 10^3/uL (0.0-0.7); Absolute Lymphocyte Count 1.32 10^3/uL (1.2-3.4); Absolute Monocyte Count 0.34 10^3/uL (0.1-0.8); Absolute Neutrophil Count 3.54 10^3/uL (1.2-6.7); Basophils % 0.9 %; Eosinophils % 0.9 %; HCT 41.1 % (36.0-46.0); HGB 13.4 g/dL (11.2-15.7); Immature Grans % 0.2 %; Lymphocytes % 24.9 %; MCH 30.7 pg (27.0-33.0); MCHC 32.6 % (32.0-36.0); MCV 94 fL (80-95); MPV 11.3 fL (8.0-11.0); Monocytes % 6.4 %; Neutrophils % 66.7 %; Platelet Count 217 10^3/uL (130-400); RBC 4.36 10^6/uL (3.93-5.22); RDW 13.2 % (11.7-14.6); RDW-SD 46.5 fL; WBC 5.31 10^3/uL (4.4-10.8)
[2024-08-05 15:58] LABS: Ferritin 71 ng/mL (8-252); TSH 1.63 uIU/Ml (0.36-3.74)
== END 2024-08-05 14:56 | disposition home or self-care (01) ==
LOC: NCHCN 14:55
PROVIDERS: PCP Family Medicine; Visit Provider Family Medicine
DX: D50.9 Iron deficiency anemia, unspecified (principal); E03.9 Hypothyroidism, unspecified
CPT/HCPCS: 82728; 84443; 85025

== ENCOUNTER 2025-07-28 10:21 | Outpatient (REF) | payer MEDICARE, SELFPAY ==
[2025-07-28 14:52] LABS: HCT 38.4 % (36.0-46.0); HGB 12.8 g/dL (11.2-15.7); MCH 30.8 pg (27.0-33.0); MCHC 33.3 % (32.0-36.0); MCV 92 fL (80-95); MPV 11.7 fL (8.0-11.0); Platelet Count 207 10^3/uL (130-400); RBC 4.16 10^6/uL (3.93-5.22); RDW 13.5 % (11.7-14.6); RDW-SD 46.1 fL; WBC 5.85 10^3/uL (4.4-10.8)
[2025-07-28 17:35] LABS: Ferritin 121 ng/mL (8-252); TSH 0.80 uIU/mL (0.36-3.74)
== END 2025-07-28 10:22 | disposition home or self-care (01) ==
LOC: NCHCN 10:21
PROVIDERS: PCP Family Medicine; Visit Provider Family Medicine
DX: D50.9 Iron deficiency anemia, unspecified (principal); E03.9 Hypothyroidism, unspecified
CPT/HCPCS: 85027; 82728; 84443

== ENCOUNTER 2025-08-12 02:03 | Outpatient (CLI) | payer MEDICARE, SELFPAY ==
--- NOTE | 2025-08-12 09:44 | DI.MAMMO_ITS ---
Exam(s) MAMMO SCREENING EXAM: MAMMO SCREENING CLINICAL HISTORY: SCREENING, Z12.31. TECHNIQUE: Bilateral full field digital CC and MLO mammographic images were obtained with 3D tomosynthesis and utilizing computer aided detection (CAD). COMPARISON: Prior mammograms were reviewed. FINDINGS: There is a new lobulated noncalcified well-defined nodule in the right breast measuring 9 by 6 mm located 8 cm in from the nipple on the CC view. Slightly lateral of center on the CC view. Small nodular densities in left breast remain unchanged. There are no new spiculated masses nor new malignant appearing microcalcification groups. There is no significant architectural distortion nor skin thickening-retraction. IMPRESSION: In the right breast there is a E new nodule at approximately 12 o'clock position. Spot compression and ultrasound recommended. BI-RADS Category 0 - Incomplete: Need additional imaging evaluation Breast Density - Category B - There are scattered areas of fibroglandular density. Breast density Category C or D implies that the patient has dense breast tissue. Dense breast tissue can make it harder to find cancer on a mammogram. Dense breast tissue is also associated with an increased risk of breast cancer. This information about the result of the mammogram report was provided to the patient to raise their awareness. Use this report when you speak with the patient about their risks for breast cancer, which includes their family history. At that time, you may recommend additional screening tests (Ultrasound or MRI) as these tests may add significant information. A negative radiographic report should not delay biopsy if a dominant or clinically suspicious mass is present. Up to ten percent of cancers are not identified on mammography. A negative report may reinforce clinical impression. Adenosis and dense breasts may obscure an underlying neoplasm. False positive reports average 6 to 10%. Patient will receive a letter notifying them of these results.
== END 2025-08-12 02:23 ==
PROVIDERS: PCP Family Medicine; Visit Provider Family Medicine
DX: Z12.31 Encounter for screening mammogram for malignant neoplasm of breast (principal)
CPT/HCPCS: 77063; 77067

== ENCOUNTER 2025-08-18 02:10 | Outpatient (CLI) | payer MEDICARE, SELFPAY ==
--- NOTE | 2025-08-18 | DI.MAMMO_ITS ---
Exam(s) MG MAMMO SCREEN CALL BACK UNI US BREAST RT LIMITED EXAM: MG MAMMO SCREEN CALL BACK UNI CLINICAL HISTORY: F/U [facility] MAMMO, R92.8, NEW RT BREAST NODULE. TECHNIQUE: Craniocaudal and mediolateral oblique spot compression digital Mammography views of the rightbreast with Tomosynthesis and right breast ultrasound. COMPARISON: MG Screening Bilat Mammo from 04/13/2014 MG Screening Bilat Mammo from 12/26/2016 MG MG MAMMO SCREENING from 01/18/2022 MG MG MAMMO SCREENING from 08/12/2025 US US BREAST RT LIMITED from 08/18/2025 FINDINGS: Mammography/Tomosynthesis: Masses: Persistent lobulated circumscribed nodule in the upper outer quadrant. Architectural Distortion: None seen. Microcalcifictions: No suspicious pleomorphic-type are seen. Skin Thickening/Nipple Retraction: None. Right breast US: Echotexture: Normal appearance of the glandular tissue. Shadowing: No suspicious foci. Cyst: Cluster of cysts is noted in the upper outer quadrant, guerrero o'clock position 6 cm from the nipple measuring 9 by 4 x 6 millimeters combined. Solid lesions: None seen. Ductal dilation: None. IMPRESSION: 1. No evidence of malignancy is noted. 2. Unless there is more urgent need, follow-up screening mammography is recommended, as per [employer] guidelines. 3. The findings were discussed with the patient on the date of the examination. BI-RADS Category 2 - Benign Findings Breast Density - Category B - There are scattered areas of fibroglandular density. Breast density Category C or D implies that the patient has dense breast tissue. Dense breast tissue can make it harder to find cancer on a mammogram. Dense breast tissue is also associated with an increased risk of breast cancer. This information about the result of the mammogram report was provided to the patient to raise their awareness. Use this report when you speak with the patient about their risks for breast cancer, which includes their family history. At that time, you may recommend additional screening tests (Ultrasound or MRI) as these tests may add significant information. A negative radiographic report should not delay biopsy if a dominant or clinically suspicious mass is present. Up to ten percent of cancers are not identified on mammography. A negative report may reinforce clinical impression. Adenosis and dense breasts may obscure an underlying neoplasm. False positive reports average 6 to 10%. Patient will receive a letter notifying them of these results.
== END 2025-08-18 02:30 ==
LOC: DI 02:10
PROVIDERS: PCP Family Medicine; Visit Provider Family Medicine
DX: Z12.31 Encounter for screening mammogram for malignant neoplasm of breast (principal); N63.11 Unspecified lump in the right breast, upper outer quadrant
CPT/HCPCS: 76642; 77063; 77067